=== PATIENT | female | born 1960 | race Caucasian/White ===

== ENCOUNTER 2018-05-08 14:46 | Observation (INO) ==
[2018-05-08] MEDS ORDERED: Aspirin 81 MG TAB.CHEW PO ONE (15:16)
--- NOTE | 2018-05-08 15:18 | Emergency Department Note ---
Disposition Clinical Impression: Exertional dyspnea Hypertension Qualifiers: Hypertension type: unspecified Qualified Code(s): I10 - Essential (primary) hypertension Disposition: Admitted As Inpatient Condition: Good Referrals: Edel Matos MD [Primary Care Provider] - Forms: ED Satisfaction Letter Time of Disposition: 18:24 General Adult HPI - General Chief complaint: ED Shortness of Breath/Dyspnea Stated complaint: SABRINA Elevated BP Time Seen by Provider: 05/08/18 15:04 Source: patient Limitations: no limitations Nursing Notes Reviewed: Yes Vital Signs Reviewed: Yes - History of Present Illness HPI Narrative: Female patient presenting to emergency department complaining of a 3 month history of dyspnea on exertion. Also generalized fatigue. 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 She takes omeprazole and has had several polyps removed from her esophagus. No chemo or radiation. She has no cardiac history is not a smoker and is not a diabetic. She reports 2 episodes of palpitations within the past month. She is also reporting a history of high blood pressure with no history of hypertension. She states today she was at work and felt very tired. They took her blood pressure and she was in the 200s over 1 teens. She does not have a history of hypertension. She reports a pressure sensation in her chest occasionally as well. Not at this time. Pain Scale: 0 - Related Data Home Medications Medication Instructions Recorded Confirmed Calcium Carbonate [Calcium] 500 mg PO DAILY 04/21/15 04/21/15 Dicyclomine [Bentyl] 20 mg PO QID 04/21/15 04/21/15 Glucosamine Sulfate Dipot Chlr 1,000 mg PO DAILY 04/21/15 04/21/15 [Glucosamine] Hyoscyamine SL [Levsin Sl] 0.125 mg SL TID 04/21/15 04/21/15 Lidocaine Patch [Lidoderm 5% patch] 1 each TP DAILY PRN 04/21/15 04/21/15 Meloxicam [Mobic] 15 mg PO DAILY 04/21/15 04/21/15 [place]-3/Dha/Epa/Fish Oil [Fish Oil 1,000 mg PO DAILY 04/21/15 04/21/15 1,000 mg Softgel] Omeprazole [PriLOSEC] 40 mg PO DAILY 04/21/15 04/21/15 Vitamin E 100 unit PO DAILY 04/21/15 04/21/15 raNITIdine HCl [Zantac] 150 mg PO DAILY PRN 04/21/15 04/21/15 Previous Rx's Medication Instructions Recorded Aspirin Enteric Coated [Aspirin EC] 325 mg PO DAILY #21 tablet. 04/20/15 OxyCODONE Immed Rel [Roxicodone 5 5 - 10 mg PO Q6HR PRN #40 tablet 04/20/15 MG] HYDROcodone/Acet 5/325 mg [[place]ame 1 tab PO Q6H PRN #4 tab 11/28/16 5-325 mg] Cyclobenzaprine [Flexeril] 10 mg PO TID PRN 10 Days #30 tablet 04/25/17 HYDROcodone/Acet 5/325 mg [Rhame 1 tab PO Q6H PRN 3 Days #12 tab 04/25/17 5-325 mg] Allergies Allergy/AdvReac Type Severity Reaction Status Date / Time codeine AdvReac Gastrointestinal Verified 05/08/18 14:54 [From Tylenol-Codeine] Upset gabapentin [From Neurontin] AdvReac Gastrointestinal Verified 05/08/18 14:54 Upset naproxen AdvReac Gastrointestinal Verified 05/08/18 14:54 Upset prednisone AdvReac Drowsy Verified 05/08/18 14:54 tramadol AdvReac Gastrointestinal Verified 05/08/18 14:54 Upset All systems ED: reviewed and negative except as stated. Review of Systems: As Per HPI Constitutional: Denies: fever ENT ED: Denies: congestion Cardiovascular: Reports: chest pain, palpitations. Denies: syncope Respiratory: Reports: dyspnea. Denies: cough, sputum production Gastrointestinal: Denies: abdominal pain, nausea, vomiting, diarrhea, hematemesis, melena, hematochezia Endocrine: Reports: fatigue Past Medical History - Past Medical History Attestation: Yes The following information was validated with the patient. Source: patient Medical history: Reports: arthritis, other Surgical history: Reports: cholecystectomy, other Psychiatric history: Reports: no psych history [employer] history: Reports: bilateral tubal ligation - Social History Smoking Status: Never smoker Smokeless Tobacco Status: No Alcohol use: Reports: none Drug use: Reports: none Physical Exam - General Limitations: no limitations General appearance: alert, in no apparent distress - Head Head exam: atraumatic, normocephalic, normal inspection - Eye Eye exam: Present: normal appearance, PERRL, EOMI - ENT ENT exam: normal exam, normal oropharynx, mucous membranes moist - Neck Neck exam: Present: normal inspection, full ROM, trachea midline - Chest Chest inspection: Present: normal inspection, symmetric chest wall rise - Respiratory Respiratory exam: Present: normal lung sounds bilaterally. Absent: respiratory distress, accessory muscle use - Cardiovascular Cardiovascular exam: Present: regular rate, normal rhythm, normal heart sounds - Abdominal Exam Abdominal exam: Present: soft, Non-Tender. Absent: tenderness, distention, guarding, rebound, rigidity, organomegaly - Extremities Exam Extremities exam: Present: normal inspection, full ROM, normal capillary refill. Absent: tenderness, pedal edema - Back Exam Back exam: Present: normal inspection, full ROM. Absent: tenderness - Neurological Exam Neurological exam: Present: alert, oriented X3 - Psychiatric Psychiatric exam: Present: normal affect, normal mood - Skin Skin exam: Present: warm, dry, intact, normal color. Absent: rash, cyanosis Course Course Narrative: Female patient with no cardiac medical history presenting with generalized fatigue over the past 3 months. Also occasional palpitations. Did have some hypertension today which she does not have a history of. She is not a smoker she is not a diabetic. She reports that she has been getting so tired that she has had a sitdown and put her head down. 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 Patient's dimer was elevated she got a CTA of her chest. This showed no signs of acute pulmonary embolism or pneumonia. Patient's EKG shows no signs of acute ischemia. Troponin is negative. Patient reports some occasional "soreness" of her chest but denies it at this time. She states she has had 2 episodes her she felt like her heart is beating "funny" over the past 3 months as well. The most recent being this morning. We will admit patient to the hospital for further cardiac Evaluation. She is agreeable this plan. - Consultations Consultation #1: Dr Jett accepted Pt in stable condition. Time: 17:55 Vital Signs Temperature 97.4 F L 05/08/18 14:54 Pulse Rate 85 05/08/18 14:54 Respiratory Rate 16 05/08/18 14:54 Blood Pressure 185/118 05/08/18 14:54 O2 Sat by Pulse Oximetry 97 05/08/18 14:54 Temperature 97.4 F L 05/08/18 14:54 Pulse Rate 66 05/08/18 17:36 Respiratory Rate 16 05/08/18 17:36 Blood Pressure 160/73 05/08/18 17:36 O2 Sat by Pulse Oximetry 95 05/08/18 17:36 Oxygen Delivery Oxygen Delivery Room Air Medical Decision Making - Medical Records Medical records reviewed: Yes I reviewed the patient's medical records. - Lab Data Lab results reviewed: Yes I reviewed the patient's lab results. Result diagrams: 05/08/18 15:38 05/08/18 15:38 Lab Results 05/08/18 05/08/18 05/08/18 Range/Units 15:38 15:38 15:38 WBC 6.0 (4.3-11.1) K/mcL RBC 4.72 (3.82-4.97) M/mcL Hgb 12.7 (11.5-15.4) g/dL Hct 40.4 (35.3-44.9) % MCV 85.6 (83.0-100.0) fL MCH 26.9 L (28.0-33.3) pg MCHC 31.4 L (31.6-35.5) g/dL RDW 13.7 (11.5-14.5) % Plt Count 213 (140-400) K/mcL MPV 9.6 (9.4-12.4) fL Immature Gran % 0.3 (0-4) % Seg Neutrophils % 74.0 % Lymphocytes % 18.3 % Monocytes % 5.9 % Eosinophils % 1.0 % Basophils % 0.5 % Neutrophils # 4.4 (1.6-8.9) K/mcL Lymphocytes # 1.1 (0.6-4.6) K/mcL Monocytes # 0.4 (0.0-1.3) K/mcL Eosinophils # 0.1 (0.0-0.6) K/mcL Basophils # 0.0 (0.0-0.2) K/mcL PT 11.2 (9.4-12.1) Seconds INR 1.0 APTT 29.4 (26.0-36.0) Seconds D-Dimer 568 H (0-500) ng/mLFEU Sodium (136-145) mEq/L Potassium (3.5-5.1) mEq/L Chloride (98-107) mEq/L Carbon Dioxide (23-29) mEq/L BUN (6-20) mg/dL Creatinine (0.60-1.20) mg/dL Est GFR ( Amer) (> 60) Est GFR (Non-Af Amer) (> 60) BUN/Creatinine Ratio (6-26) Glucose (70-105) mg/dL Calculated Osmolality (280-300) Calcium (8.6-10.3) mg/dL Troponin I (< 0.04) ng/mL B-Natriuretic Peptide 61 (Less than 100) pg/mL 05/08/18 Range/Units 15:38 WBC (4.3-11.1) K/mcL RBC (3.82-4.97) M/mcL Hgb (11.5-15.4) g/dL Hct (35.3-44.9) % MCV (83.0-100.0) fL MCH (28.0-33.3) pg MCHC (31.6-35.5) g/dL RDW (11.5-14.5) % Plt Count (140-400) K/mcL MPV (9.4-12.4) fL Immature Gran % (0-4) % Seg Neutrophils % % Lymphocytes % % Monocytes % % Eosinophils % % Basophils % % Neutrophils # (1.6-8.9) K/mcL Lymphocytes # (0.6-4.6) K/mcL Monocytes # (0.0-1.3) K/mcL Eosinophils # (0.0-0.6) K/mcL Basophils # (0.0-0.2) K/mcL PT (9.4-12.1) Seconds INR APTT (26.0-36.0) Seconds D-Dimer (0-500) ng/mLFEU Sodium 142 (136-145) mEq/L Potassium 3.7 (3.5-5.1) mEq/L Chloride 107 (98-107) mEq/L Carbon Dioxide 27 (23-29) mEq/L BUN 17 (6-20) mg/dL Creatinine 0.75 (0.60-1.20) mg/dL Est GFR ( Amer) > 60 (> 60) Est GFR (Non-Af Amer) > 60 (> 60) BUN/Creatinine Ratio 23 (6-26) Glucose 159 H (70-105) mg/dL Calculated Osmolality 299 (280-300) Calcium 9.0 (8.6-10.3) mg/dL Troponin I < 0.03 (< 0.04) ng/mL B-Natriuretic Peptide (Less than 100) pg/mL - Radiology Data Radiology results reviewed: Yes I reviewed the patient's radiology results. Chest X-Ray 05/08/18 15:16 IMPRESSION: No acute abnormality D/ / Chet Villatoro / Chet Villatoro Interpreting Provider: Chet Villatoro Chest CTA 05/08/18 16:17 IMPRESSION: No evidence of pulmonary embolism or acute pulmonary abnormality. D/ / Derik Mathew MD / Derik Mathew MD Interpreting Provider: Derik Mathew MD - EKG Data EKG #1 EKG attestation: Yes I reviewed and interpreted this EKG. EKG results narrative: Normal sinus rhythm at a rate of 84. KS interval is 151. QRS duration is 85. QT is 380. QTC is 450. No signs of acute ischemia. No signs of WPW or Brugada. No significant change from previous EKG dated 04/21/2015.
[2018-05-08 15:49] LABS: Basophils % 0.5 %; Eosinophils # 0.1 K/mcL (0.0-0.6); Hematocrit 40.4 % (35.3-44.9); Hemoglobin 12.7 g/dL (11.5-15.4); Immature Granulocytes % 0.3 % (0-4); Lymphocytes # 1.1 K/mcL (0.6-4.6); Lymphocytes % 18.3 %; Mean Corpuscular HGB Conc 31.4 g/dL (31.6-35.5); Mean Corpuscular Hemoglobin 26.9 pg (28.0-33.3); Mean Corpuscular Volume 85.6 fL (83.0-100.0); Mean Platelet Volume 9.6 fL (9.4-12.4); Monocytes # 0.4 K/mcL (0.0-1.3); Monocytes % 5.9 %; Neutrophils # 4.4 K/mcL (1.6-8.9); Platelet Count 213 K/mcL (140-400); Red Blood Count 4.72 M/mcL (3.82-4.97); Red Cell Distribution Width 13.7 % (11.5-14.5)
[2018-05-08 16:00] LABS: Prothrombin Time 11.2 Seconds (9.4-12.1)
[2018-05-08 16:02] LABS: Activated Partial Thrombo Time 29.4 Seconds (26.0-36.0)
[2018-05-08 16:12] LABS: BUN/Creatinine Ratio 23 (6-26); Blood Urea Nitrogen 17 mg/dL (6-20); Carbon Dioxide 27 mEq/L (23-29); Chloride 107 mEq/L (98-107); Glucose 159 mg/dL (70-105); Osmolality,Calculated 299 (280-300); Potassium 3.7 mEq/L (3.5-5.1); Sodium 142 mEq/L (136-145); Troponin I < 0.03 ng/mL (< 0.04); eGFR For Non-African Americans > 60 (> 60)
[2018-05-08] MEDS ORDERED: Isovue-370 500 ML BOTTLE IVP ONE (16:17)
--- NOTE | 2018-05-08 16:52 | Emergency Department Note ---
Disposition Clinical Impression: Exertional dyspnea Hypertension Qualifiers: Hypertension type: unspecified Qualified Code(s): I10 - Essential (primary) hypertension Disposition: Admitted As Inpatient Forms: ED Satisfaction Letter General Adult HPI - General Chief complaint: ED Shortness of Breath/Dyspnea Stated complaint: SABRINA Elevated BP Time Seen by Provider: 05/08/18 15:04 Source: patient Limitations: no limitations - History of Present Illness Pain Scale: 0 - Related Data Home Medications Medication Instructions Recorded Confirmed Calcium Carbonate [Calcium] 500 mg PO DAILY 04/21/15 04/21/15 Dicyclomine [Bentyl] 20 mg PO QID 04/21/15 04/21/15 Glucosamine Sulfate Dipot Chlr 1,000 mg PO DAILY 04/21/15 04/21/15 [Glucosamine] Hyoscyamine SL [Levsin Sl] 0.125 mg SL TID 04/21/15 04/21/15 Lidocaine Patch [Lidoderm 5% patch] 1 each TP DAILY PRN 04/21/15 04/21/15 Meloxicam [Mobic] 15 mg PO DAILY 04/21/15 04/21/15 [place]-3/Dha/Epa/Fish Oil [Fish Oil 1,000 mg PO DAILY 04/21/15 04/21/15 1,000 mg Softgel] Omeprazole [PriLOSEC] 40 mg PO DAILY 04/21/15 04/21/15 Vitamin E 100 unit PO DAILY 04/21/15 04/21/15 raNITIdine HCl [Zantac] 150 mg PO DAILY PRN 04/21/15 04/21/15 Previous Rx's Medication Instructions Recorded Aspirin Enteric Coated [Aspirin EC] 325 mg PO DAILY #21 tablet. 04/20/15 OxyCODONE Immed Rel [Roxicodone 5 5 - 10 mg PO Q6HR PRN #40 tablet 04/20/15 MG] HYDROcodone/Acet 5/325 mg [[place] 1 tab PO Q6H PRN #4 tab 11/28/16 5-325 mg] Cyclobenzaprine [Flexeril] 10 mg PO TID PRN 10 Days #30 tablet 04/25/17 HYDROcodone/Acet 5/325 mg [Anna 1 tab PO Q6H PRN 3 Days #12 tab 04/25/17 5-325 mg] Allergies Allergy/AdvReac Type Severity Reaction Status Date / Time codeine AdvReac Gastrointestinal Verified 05/08/18 14:54 [From Tylenol-Codeine] Upset gabapentin [From Neurontin] AdvReac Gastrointestinal Verified 05/08/18 14:54 Upset naproxen AdvReac Gastrointestinal Verified 05/08/18 14:54 Upset prednisone AdvReac Drowsy Verified 05/08/18 14:54 tramadol AdvReac Gastrointestinal Verified 05/08/18 14:54 Upset Past Medical History - Past Medical History Medical history: Reports: arthritis, other Surgical history: Reports: cholecystectomy, other Psychiatric history: Reports: no psych history [employer] 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 - Social History Smoking Status: Never smoker Smokeless Tobacco Status: No Alcohol use: Reports: none Drug use: Reports: none Physical Exam - General Limitations: no limitations General appearance: alert, in no apparent distress Course Vital Signs Temperature 97.4 F L 05/08/18 14:54 Pulse Rate 85 05/08/18 14:54 Respiratory Rate 16 05/08/18 14:54 Blood Pressure 185/118 05/08/18 14:54 O2 Sat by Pulse Oximetry 97 05/08/18 14:54 Temperature 97.4 F L 05/08/18 14:54 Pulse Rate 85 05/08/18 15:25 Respiratory Rate 16 05/08/18 15:25 Blood Pressure 159/98 05/08/18 15:25 O2 Sat by Pulse Oximetry 99 05/08/18 15:27 Oxygen Delivery Oxygen Delivery Room Air Medical Decision Making - Lab Data Result diagrams: 05/08/18 15:38 05/08/18 15:38 Lab Results 05/08/18 05/08/18 05/08/18 Range/Units 15:38 15:38 15:38 WBC 6.0 (4.3-11.1) K/mcL RBC 4.72 (3.82-4.97) M/mcL Hgb 12.7 (11.5-15.4) g/dL Hct 40.4 (35.3-44.9) % MCV 85.6 (83.0-100.0) fL MCH 26.9 L (28.0-33.3) pg MCHC 31.4 L (31.6-35.5) g/dL RDW 13.7 (11.5-14.5) % Plt Count 213 (140-400) K/mcL MPV 9.6 (9.4-12.4) fL Immature Gran % 0.3 (0-4) % Seg Neutrophils % 74.0 % Lymphocytes % 18.3 % Monocytes % 5.9 % Eosinophils % 1.0 % Basophils % 0.5 % Neutrophils # 4.4 (1.6-8.9) K/mcL Lymphocytes # 1.1 (0.6-4.6) K/mcL Monocytes # 0.4 (0.0-1.3) K/mcL Eosinophils # 0.1 (0.0-0.6) K/mcL Basophils # 0.0 (0.0-0.2) K/mcL PT 11.2 (9.4-12.1) Seconds INR 1.0 APTT 29.4 (26.0-36.0) Seconds D-Dimer 568 H (0-500) ng/mLFEU Sodium (136-145) mEq/L Potassium (3.5-5.1) mEq/L Chloride (98-107) mEq/L Carbon Dioxide (23-29) mEq/L BUN (6-20) mg/dL Creatinine (0.60-1.20) mg/dL Est GFR ( Amer) (> 60) Est GFR (Non-Af Amer) (> 60) BUN/Creatinine Ratio (6-26) Glucose (70-105) mg/dL Calculated Osmolality (280-300) Calcium (8.6-10.3) mg/dL Troponin I (< 0.04) ng/mL B-Natriuretic Peptide 61 (Less than 100) pg/mL 05/08/18 Range/Units 15:38 WBC (4.3-11.1) K/mcL RBC (3.82-4.97) M/mcL Hgb (11.5-15.4) g/dL Hct (35.3-44.9) % MCV (83.0-100.0) fL MCH (28.0-33.3) pg MCHC (31.6-35.5) g/dL RDW (11.5-14.5) % Plt Count (140-400) K/mcL MPV (9.4-12.4) fL Immature Gran % (0-4) % Seg Neutrophils % % Lymphocytes % % Monocytes % % Eosinophils % % Basophils % % Neutrophils # (1.6-8.9) K/mcL Lymphocytes # (0.6-4.6) K/mcL Monocytes # (0.0-1.3) K/mcL Eosinophils # (0.0-0.6) K/mcL Basophils # (0.0-0.2) K/mcL PT (9.4-12.1) Seconds INR APTT (26.0-36.0) Seconds D-Dimer (0-500) ng/mLFEU Sodium 142 (136-145) mEq/L Potassium 3.7 (3.5-5.1) mEq/L Chloride 107 (98-107) mEq/L Carbon Dioxide 27 (23-29) mEq/L BUN 17 (6-20) mg/dL Creatinine 0.75 (0.60-1.20) mg/dL Est GFR ( Amer) > 60 (> 60) Est GFR (Non-Af Amer) > 60 (> 60) BUN/Creatinine Ratio 23 (6-26) Glucose 159 H (70-105) mg/dL Calculated Osmolality 299 (280-300) Calcium 9.0 (8.6-10.3) mg/dL Troponin I < 0.03 (< 0.04) ng/mL B-Natriuretic Peptide (Less than 100) pg/mL Attestation Statement - Attestation Attestation: I examined this patient and my medical decision-making was reviewed with the Resident Physician. I agree with the documented findings, disposition and ameena tment plan as described except to the extent set forth below. 57 year old female state that she has been experincing increased exetioanl dyspnea over the past few weeks and states that whiel she was taking her shower she became incresingly more sort of breath. Argelia troponin is neg, non ischemic EKG, and D-dimer elevated CTA pending. Argelia was hypertensive upon arrival and now is 150/80s. We will obtain the CTA and then admit to exertional dyspnea and likely unstable angina.
[2018-05-08] MEDS ORDERED: Naloxone 0.4 MG/ML INJ IVP PRN (18:09)
[2018-05-08] MEDS ORDERED: Ondansetron 4 MG/2 ML VIAL IVP PRN (18:09)
--- NOTE | 2018-05-08 18:19 | Internal Med History&Physical ---
Date of Encounter: 05/08/18 Time of Encounter: 17:58 Internal Medicine - H&P: HPI Chief complaint: chest pain/fatigue Admitted From: Home Plans for Post Hospital Care: Home History of present illness: Ms. Le is a 57 year old female with PMH of grider's esophagus, arthritis, morbid obesity who presents to the ER for evaluation of persistent chest discomfort, fatigue, and dyspnea. Pt states for the last three months she has been feeling fatigued, chest heaviness, and exertional dyspnea. She states this week, her symptoms have progressively worsened. She states anytime she bends over to tie her shoe laces, she is fatigued and extremely short of breath. Reports of extensive weight gain in the last three months. Currently she is resting in bed and denies any chest pain or shortness of breath at rest. States she constantly feels fatigued as she has ran a marathon. Denies any cough, cold, congestion, headache, fever, or chills. No traveling history or exposure to ill contacts was reported. Ten point ROS is negative except as listed above Social hx: Never smoker, denies alcohol use Past Med Surg Social Fam HX - Past Medical History Medical history: arthritis, other Additional medical history: farzad's esophagus Psychiatric history: no psych history - Past Surgical History Surgical History: cholecystectomy, other Additional surgical history: knee replacement, tubal, rotator cuff repair. - Social History Smoking Status: Never smoker Smokeless Tobacco Status: No Alcohol use: none Drug use: none Internal Medicine - H&P: Meds Aspirin Enteric Coated [Aspirin EC] 325 mg PO DAILY #21 tablet. 04/20/15 [Rx] OxyCODONE Immed Rel [Roxicodone 5 MG] 5 - 10 mg PO Q6HR PRN #40 tablet 04/20/15 [Rx] Calcium Carbonate [Calcium] 500 mg PO DAILY 04/21/15 [History] Dicyclomine [Bentyl] 20 mg PO QID 04/21/15 [History] Glucosamine Sulfate Dipot Chlr [Glucosamine] 1,000 mg PO DAILY 04/21/15 [History] Hyoscyamine SL [Levsin Sl] 0.125 mg SL TID 04/21/15 [History] Lidocaine Patch [Lidoderm 5% patch] 1 each TP DAILY PRN 04/21/15 [History] Meloxicam [Mobic] 15 mg PO DAILY 04/21/15 [History] [place]-3/Dha/Epa/Fish Oil [Fish Oil 1,000 mg Softgel] 1,000 mg PO DAILY 04/21/15 [History] Omeprazole [PriLOSEC] 40 mg PO DAILY 04/21/15 [History] Vitamin E 100 unit PO DAILY 04/21/15 [History] raNITIdine HCl [Zantac] 150 mg PO DAILY PRN 04/21/15 [History] HYDROcodone/Acet 5/325 mg [[place] 5-325 mg] 1 tab PO Q6H PRN #4 tab 11/28/16 [Rx] Cyclobenzaprine [Flexeril] 10 mg PO TID PRN 10 Days #30 tablet 04/25/17 [Rx] HYDROcodone/Acet 5/325 mg [[place] 5-325 mg] 1 tab PO Q6H PRN 3 Days #12 tab 04/25/17 [Rx] Allergy/AdvReac Type Severity Reaction Status Date / Time codeine AdvReac Gastrointestinal Verified 05/08/18 14:54 [From Tylenol-Codeine] Upset gabapentin [From Neurontin] AdvReac Gastrointestinal Verified 05/08/18 14:54 Upset naproxen AdvReac Gastrointestinal Verified 05/08/18 14:54 Upset prednisone AdvReac Drowsy Verified 05/08/18 14:54 tramadol AdvReac Gastrointestinal Verified 05/08/18 14:54 Upset All Systems PM: A 10-system review of systems was performed and is negative for pertinent findings except as documented above in the HPI. Review of systems: Ten point ROS is negative except as listed in HPI - Constitutional Vitals: Temp Pulse Resp BP Pulse Ox 97.4 F L 66 16 160/73 95 05/08/18 14:54 05/08/18 17:36 05/08/18 17:36 05/08/18 17:36 05/08/18 17:36 Exam: General: No acute distress, AAO x 3, pleasant morbidly obese female HEENT: EOMI, NC/AT, no scleral icterus, PERRLA Respiratory: Clear to auscultate bilaterally, no wheezing, no rales Cardiovascular: Regular, Rate, Rhythm, No murmurs, no JVD, no LE edema GI: Soft, Non tender, non distended, normal bowel sounds Ext: No edema, no tenderness, positive pulses Neuro: AAO x 3, no focal deficits Internal Med - H&P Results - Labs CBC & Chem 7: 05/08/18 15:38 05/08/18 15:38 Labs: Short CBC 05/08/18 Range/Units 15:38 WBC 6.0 (4.3-11.1) K/mcL Hgb 12.7 (11.5-15.4) g/dL Hct 40.4 (35.3-44.9) % Plt Count 213 (140-400) K/mcL Neutrophils # 4.4 (1.6-8.9) K/mcL BMP 05/08/18 15:38 Sodium 142 Potassium 3.7 Chloride 107 Carbon Dioxide 27 BUN 17 Creatinine 0.75 Glucose 159 H Calcium 9.0 Cardiac Enzymes 05/08/18 Range/Units 15:38 Troponin I < 0.03 (< 0.04) ng/mL - Impressions ITS Impressions Chest X-Ray 05/08/18 15:16 IMPRESSION: No acute abnormality D/ / Chet Villatoro / Chet Villatoro Interpreting Provider: Chet Villatoro Chest CTA 05/08/18 16:17 IMPRESSION: No evidence of pulmonary embolism or acute pulmonary abnormality. D/ / Derik Mathew MD / Derik Mathew MD Interpreting Provider: Derik Mathew MD - Summary of Assessment and Plan Summary of Assessment and Plan: Patient is a pleasant 57 y/o female with PMH of arthritis, grider's esophagus, and morbidly obesity who presented to the ER for evaluation of persistent chest discomfort, dyspnea, and fatigue x 3 months. 1. Chest pain/Exertional dyspnea Clinical presentation concerning for CHF/unstable angina will obtain 2D echo monitor serial TNI aspirin, lipitor f/u lipid panel tele monitoring based on above test results, will consider cardiology evaluation Elevated D-dimer, CTA chest negative for acute PE 2. HTN Noted to have elevated BP readings as per med records no documented history of hypertension will initiate Lisinopril 5mg PO qdaily closely monitor BP 3. Grider's esophagus continue PPI support 4. DVT ppx Heparin SQ Will admit under observation to rule out ACS contributing to patient's clinical presentation. LOS <2 midnights Code status: Full Code Care plan discussed with patient/Family Will restart home medications after verification - Time Spent With Patient Total time spent is greater than 50% in coordination of care (as documented) at patient's floor/unit and/or counseling patient:
[2018-05-09 04:49] LABS: Basophils % 0.6 %; Eosinophils # 0.1 K/mcL (0.0-0.6); Hematocrit 37.5 % (35.3-44.9); Hemoglobin 11.9 g/dL (11.5-15.4); Immature Granulocytes % 0.2 % (0-4); Lymphocytes # 1.3 K/mcL (0.6-4.6); Lymphocytes % 26.8 %; Mean Corpuscular HGB Conc 31.7 g/dL (31.6-35.5); Mean Corpuscular Hemoglobin 26.5 pg (28.0-33.3); Mean Corpuscular Volume 83.5 fL (83.0-100.0); Monocytes # 0.5 K/mcL (0.0-1.3); Monocytes % 9.9 %; Platelet Count 203 K/mcL (140-400); Red Blood Count 4.49 M/mcL (3.82-4.97); Red Cell Distribution Width 13.9 % (11.5-14.5); Segmented Neutrophils % 60.5 %
[2018-05-09 05:00] LABS: BUN/Creatinine Ratio 25 (6-26); Blood Urea Nitrogen 17 mg/dL (6-20); Calcium 8.7 mg/dL (8.6-10.3); Carbon Dioxide 28 mEq/L (23-29); Chloride 107 mEq/L (98-107); Cholesterol 206 mg/dL (< 200); Glucose 110 mg/dL (70-105); HDL Cholesterol 52 mg/dL (40-59); LDL Cholesterol,Calculated 134 mg/dL (0-99); Osmolality,Calculated 294 (280-300); Phosphorous 3.9 mg/dL (2.7-4.5); Potassium 3.7 mEq/L (3.5-5.1); Sodium 141 mEq/L (136-145); Triglycerides 99 mg/dL (< 150); eGFR For Non-African Americans > 60 (> 60)
[2018-05-09] MEDS ORDERED: *HR* Heparin 5,000 UNIT/ML VIAL SQ SCH (06:00)
[2018-05-09] MEDS ORDERED: Perflutren Lipid Microsphere 1.3 ML in 0.9 % Sodium Chloride 8.7 ML IVP ONE (08:11)
[2018-05-09] MEDS ORDERED: Aspirin Enteric Coated 81 MG Tablet PO SCH (09:00)
--- NOTE | 2018-05-09 10:43 | Discharge Summary ---
- NOTES TO OUTPATIENT PROVIDER Notes to Outpatient Provider: f/u with PCP in one week. May need out pt stress test through your PCP. Please f/u with Dr. Arnold as scheduled for your readjustment of CPAP settings Orders not resulted at time of discharge: Pending orders 05/09/18 04:00 Hgb A1C Routine 05/09/18 06:00 ECG 12 lead ECG [ECG] AM 0600 Date of Encounter: 05/09/18 Time of Encounter: 10:41 - Discharge Diagnosis (1) Exertional dyspnea Priority: Primary Status: Acute (2) Metabolic syndrome Priority: Secondary Status: Acute (3) Morbid obesity with BMI of 40.0-44.9, adult Priority: Secondary Status: Acute (4) Diastolic CHF, acute Priority: Secondary Status: Acute (5) Hypertension Priority: Secondary Status: Acute Qualifiers: Hypertension type: essential hypertension Qualified Code(s): I10 - Essential (primary) hypertension (6) Hyperlipidemia Priority: Secondary Status: Acute Qualifiers: Hyperlipidemia type: unspecified Qualified Code(s): E78.5 - Hyperlipidemia, unspecified Hospital course: Ms. Le is a 57 year old female with PMH of grider's esophagus, arthritis, obstructive sleep apnea uses CPAP, and morbid obesity who presented to the ER for evaluation of dyspnea on exertion, fatigue, and SOB. Pt states for the last three months she has been feeling fatigued, chest heaviness, and exertional dyspnea. She states this week, her symptoms have progressively worsened. She also reported of extensive weight gain in the last three months. She was admitted in the hospital and placed on cardiac technician. Her initial EKG showed normal sinus rhythm with no acute ST, T changes, however she does have left ventricular hypertrophy changes. Her serial troponin came back is negative. Her BNP was in 60's. She did use our CPAP last night with settings of 9.Patient stated she is feeling better today denied anymore shortness of breath and chest pain. Her echocardiogram showed preserved LVEF with mild left ventricular diastolic dysfunction. I did recommend the patient to take Lasix 20 mg PO daily as needed. Also patient seems to be having problems with her home CPAP, so I did request her to follow up with the Dr. Arnold for another sleep study. Her HbA1C 6.0, with morbid obesity she does have metabolic syndrome, counseled the pt about weight loss, diet modifications. Also recommend the pt to talk to PCP for possible out pt stress test, if she keep having same symptoms. - Time Spent with Patient Total time spent providing and/or coordinating discharge services: - Discharge Medications Prescriptions: New Albuterol Sulfate [Albuterol Inhaler] 2 puff IH Q6HR PRN #1 hfa.aer.ad PRN Reason: Shortness Of Breath Aspirin Enteric Coated [Aspirin EC] 81 mg PO DAILY #30 tablet. Atorvastatin [Lipitor] 40 mg PO HS #30 tablet Furosemide [Lasix] 20 mg PO DAILY PRN #15 tablet PRN Reason: Edema Lisinopril [Zestril] 5 mg PO DAILY #30 tablet Continue [place]-3/Dha/Epa/Fish Oil [Fish Oil 1,000 mg Softgel] 1,000 mg PO DAILY Vitamin E Acid Succinate [Vitamin E] 400 units PO DAILY Omeprazole [PriLOSEC] 40 mg PO DAILY Glucosamine HCl/Chondr Sam A Na [Cvs Glucosamine-Chondr Tablet] 1 tab PO DAILY Calcium Carb/Magnesium Oxid/D3 [Calcium Magnesium + D Tablet] 1 tab PO DAILY Changed Meloxicam [Mobic] 15 mg PO DAILY PRN #0 PRN Reason: Pain Home Medications: [place]-3/Dha/Epa/Fish Oil [Fish Oil 1,000 mg Softgel] 1,000 mg PO DAILY 04/21/15 [History] Calcium Carb/Magnesium Oxid/D3 [Calcium Magnesium + D Tablet] 1 tab PO DAILY 05/08/18 [History] Glucosamine HCl/Chondr Sam A Na [Cvs Glucosamine-Chondr Tablet] 1 tab PO DAILY 05/08/18 [History] Omeprazole [PriLOSEC] 40 mg PO DAILY 05/08/18 [History] Vitamin E Acid Succinate [Vitamin E] 400 units PO DAILY 05/08/18 [History] Albuterol Sulfate [Albuterol Inhaler] 2 puff IH Q6HR PRN #1 hfa.aer.ad 05/09/18 [Rx] Aspirin Enteric Coated [Aspirin EC] 81 mg PO DAILY #30 tablet. 05/09/18 [Rx] Atorvastatin [Lipitor] 40 mg PO HS #30 tablet 05/09/18 [Rx] Furosemide [Lasix] 20 mg PO DAILY PRN #15 tablet 05/09/18 [Rx] Lisinopril [Zestril] 5 mg PO DAILY #30 tablet 05/09/18 [Rx] Meloxicam [Mobic] 15 mg PO DAILY PRN #0 05/09/18 [Rx] Allergies/Adverse Reactions: Allergy/AdvReac Type Severity Reaction Status Date / Time codeine AdvReac Gastrointestinal Verified 05/08/18 21:03 [From Tylenol-Codeine] Upset gabapentin [From Neurontin] AdvReac Gastrointestinal Verified 05/08/18 21:03 Upset naproxen AdvReac Gastrointestinal Verified 05/08/18 21:03 Upset prednisone AdvReac Drowsy Verified 05/08/18 21:03 tramadol AdvReac Gastrointestinal Verified 05/08/18 21:03 Upset Date of admission: 05/08/18 18:19 Primary care physician: Edel Matos - Constitutional Vitals: Temp Pulse Resp BP Pulse Ox 97.7 F 62 16 127/77 97 05/09/18 06:37 05/09/18 06:37 05/09/18 06:37 05/09/18 06:37 05/09/18 06:37 General appearance: Present: cooperative, A&O X 3, no acute distress Exam: Gen: Alert, awake, Oriented to time,place and person Chest: Diminished breath sounds B/L, mild wheezing, No crackles, No rales Heart: S1S2+ RRR No murmurs Abd: Soft, NT, BS +, No organomegaly Ext: No edema, pulses are palpable, No calf tenderness Neuro : Benign findings Skin: No rash. - Patient Status Disposition: Home, Self-Care Condition: Good Overall status at discharge: patient is back to baseline - Discharge Instructions Follow Up With: Edel Matos MD [Primary Care Provider] - 05/17/18 1:45 pm (Appointment needed to schedule an outpatient stress test. PLEASE CALL OFFICE AT [phone] TO SEE IF ANY OFFICE HAS ANY CANCELATIONS FOR AN EARLIER APPOINTMENT.) Arthur Arnold MD [Partnered Physician] - (Your appointment has been requested, our offices will call with an appointment time and date.) - Diet and Activity Activity: increase activity as tolerated Diet: low salt diet
[2018-05-09 14:58] VITALS: BP 110/63
--- NOTE | 2018-05-09 17:30 | Electrocardiograph Report ---
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
== END 2018-05-09 15:47 | disposition home or self-care (01) ==
LOC: EMEROOARM 14:46 → 3BNU 14:46 → SUATTDRO 18:19 → 3BNU 20:10
PROVIDERS: ADMIT Internal Medicine; ATTEND Family Medicine

== ENCOUNTER 2018-11-04 15:44 | Observation (INO) ==
[2018-11-04 16:17] LABS: Bilirubin,Urine Negative (Negative); Blood,Urine Negative (Negative); Clarity,Urine Clear (Clear); Color,Urine Yellow (Yellow); Glucose,Urine (UA) Normal (Normal); Ketones,Urine Negative (Negative); Leukocyte Esterase,Urine Negative (Negative); Nitrite,Urine Negative (Negative); PH,Urine 6.5 pH Units (5.0-8.0); Protein,Urine Negative (Neg-Trace); Urobilinogen,Urine Normal (Normal)
--- NOTE | 2018-11-04 16:31 | Emergency Department Note ---
Disposition Clinical Impression: Fever Qualifiers: Fever type: unspecified Qualified Code(s): R50.9 - Fever, unspecified Disposition: Home, Self-Care Condition: Fair Referrals: Edel Matos MD [Primary Care Provider] - Forms: ED Satisfaction Letter Time of Disposition: 19:15 General Adult HPI - General Chief complaint: ED Fever Stated complaint: UTI fever Time Seen by Provider: 11/04/18 16:06 Source: patient Mode of arrival: ambulatory Limitations: no limitations Nursing Notes Reviewed: Yes Vital Signs Reviewed: Yes - History of Present Illness HPI Narrative: Patient is a 58F with PMHx HTN, DM, knee replacement, presenting with fever, nausea, started on keflex 1 week ago Tuesday, seen again on Tuesday and prescribed Ciprofloxacin. Over the past 3 days patient has slight improvement in symptoms. Intermittent fever for 6 days. Dizziness, nausea, KAYLIE, polyuria, no dysuria. No abdominal pain. No cough or congestion. She c/o bruising left hip and swelling/pain in the left calf. Normal stools. Pain Scale: 0 - Related Data Home Medications Medication Instructions Recorded Confirmed [place]-3/Dha/Epa/Fish Oil [Fish Oil 1,000 mg PO DAILY 04/21/15 05/08/18 1,000 mg Softgel] Calcium Carb/Magnesium Oxid/D3 1 tab PO DAILY 05/08/18 05/08/18 [Calcium Magnesium + D Tablet] Glucosamine HCl/Chondr Sam A Na 1 tab PO DAILY 05/08/18 05/08/18 [Cvs Glucosamine-Chondr Tablet] Omeprazole [PriLOSEC] 40 mg PO DAILY 05/08/18 05/08/18 Vitamin E Acid Succinate [Vitamin 400 units PO DAILY 05/08/18 05/08/18 E] Previous Rx's Medication Instructions Recorded Albuterol Sulfate [Albuterol 2 puff IH Q6HR PRN #1 hfa.aer.ad 05/09/18 Inhaler] Aspirin Enteric Coated [Aspirin EC] 81 mg PO DAILY #30 tablet. 05/09/18 Atorvastatin [Lipitor] 40 mg PO HS #30 tablet 05/09/18 Furosemide [Lasix] 20 mg PO DAILY PRN #15 tablet 05/09/18 Lisinopril [Zestril] 20 mg PO DAILY #30 tablet 05/09/18 Meloxicam [Mobic] 15 mg PO DAILY PRN #0 05/09/18 Ondansetron ODT [Zofran ODT] 4 mg SL Q6HR #20 tab.rapdis 10/29/18 cephALEXin [Keflex] 500 mg PO BID #21 capsule 10/29/18 Allergies Allergy/AdvReac Type Severity Reaction Status Date / Time codeine AdvReac Gastrointestinal Verified 05/08/18 21:03 [From Tylenol-Codeine] Upset gabapentin [From Neurontin] AdvReac Gastrointestinal Verified 05/08/18 21:03 Upset naproxen AdvReac Gastrointestinal Verified 05/08/18 21:03 Upset prednisone AdvReac Drowsy Verified 05/08/18 21:03 tramadol AdvReac Gastrointestinal Verified 05/08/18 21:03 Upset All systems ED: reviewed and negative except as stated. Review of Systems: As Per HPI Constitutional: Reports: fever, chills Cardiovascular: Denies: chest pain, palpitations, dyspnea on exertion Respiratory: Denies: cough, dyspnea, wheezes Gastrointestinal: Reports: nausea. Denies: abdominal pain, vomiting, diarrhea Genitourinary: Denies: urgency, dysuria, frequency, hematuria Musculoskeletal: Denies: back pain, neck pain Integumentary: Denies: rash Neurological: Denies: headache, weakness, numbness, paresthesias Past Medical History - Past Medical History Attestation: Yes The following information was validated with the patient. 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 - Social History Smoking Status: Never smoker Smokeless Tobacco Status: No Alcohol use: Reports: none Drug use: Reports: none Physical Exam CONSTITUTIONAL: Well-appearing; well-nourished; A&O X 3, in no apparent distress HEAD: Normocephalic; atraumatic EYES: PERRL, no scleral icterus NOSE: The nose is normal in appearance without rhinorrhea NECK: No JVD or distended neck veins RESP: Normal chest excursion with respiration; breath sounds clear and equal bilaterally; no wheezes, rhonchi, or rales CARD: Regular rhythm, without murmurs, rub or gallop ABD: Non-distended; non-tender, soft, without rigidity, rebound or guarding,no pulsatile mass CHEST: No pain with palpation SKIN: Normal for age and race; warm and dry without diaphoresis ; mild ecchymosis along distribution of superficial veins to the lateral left thigh there is slightly warm to touch. EXTREMITIES: Pulses are 2 plus and equal times 4 extremities, no peripheral edema or calf muscle pain - General Limitations: no limitations General appearance: alert Course Course Narrative: Patient is presenting for prolonged fever in which she has received treatment for urinary tract infection which she was initially having urinary symptoms but those symptoms have since resolved. Currently on ciprofloxacin presenting to the ED for continuation of her fever that has been going on for almost the past 10 days. Patient undergo evaluation with basic labs, blood cultures undergo DVT ultrasound of the left lower extremity to evaluate for blood clot giving to superficial thrombophlebitis. Vital Signs Temperature 102.3 F H 11/04/18 15:59 Pulse Rate 94 11/04/18 15:59 Respiratory Rate 18 11/04/18 15:59 Blood Pressure 145/98 11/04/18 15:59 O2 Sat by Pulse Oximetry 95 11/04/18 15:59 Temperature 102.3 F H 11/04/18 16:25 Pulse Rate 94 11/04/18 16:25 Respiratory Rate 18 11/04/18 16:25 Blood Pressure 145/98 11/04/18 16:25 O2 Sat by Pulse Oximetry 98 11/04/18 16:25 Oxygen Delivery Oxygen Delivery Room Air Medical Decision Making - Medical Records Medical records reviewed: Yes I reviewed the patient's medical records. - Lab Data Lab results reviewed: Yes I reviewed the patient's lab results. Result diagrams: 11/04/18 16:29 11/04/18 16:29 Lab Results 11/04/18 11/04/18 11/04/18 Range/Units 16:00 16:18 16:29 WBC 6.2 D (4.3-11.1) K/mcL RBC 4.37 (3.82-4.97) M/mcL Hgb 12.1 (11.5-15.4) g/dL Hct 37.3 (35.3-44.9) % MCV 85.4 (83.0-100.0) fL MCH 27.7 L (28.0-33.3) pg MCHC 32.4 (31.6-35.5) g/dL RDW 13.0 (11.5-14.5) % Plt Count 160 (140-400) K/mcL MPV 10.0 (9.4-12.4) fL Immature Gran % 0.6 (0-4) % Seg Neutrophils % 60.8 % Lymphocytes % 29.7 % Monocytes % 6.6 % Eosinophils % 1.8 % Basophils % 0.5 % Neutrophils # 3.8 (1.6-8.9) K/mcL Lymphocytes # 1.8 (0.6-4.6) K/mcL Monocytes # 0.4 (0.0-1.3) K/mcL Eosinophils # 0.1 (0.0-0.6) K/mcL Basophils # 0.0 (0.0-0.2) K/mcL Sodium (136-145) mEq/L Potassium (3.5-5.1) mEq/L Chloride (98-107) mEq/L Carbon Dioxide (23-29) mEq/L BUN (6-20) mg/dL Creatinine (0.60-1.20) mg/dL Est GFR ( Amer) (> 60) Est GFR (Non-Af Amer) (> 60) BUN/Creatinine Ratio (6-26) Glucose (70-105) mg/dL Calculated Osmolality (280-300) Lactic Acid 1.1 (0.5-2.2) mmol/L Calcium (8.6-10.3) mg/dL Total Bilirubin (0.3-1.0) mg/dL Direct Bilirubin (0.0-0.2) mg/dL Indirect Bilirubin (0.0-1.2) mg/dL AST (13-39) Units/L ALT (7-52) Units/L Alkaline Phosphatase (34-104) Units/L Troponin I (< 0.04) ng/mL Serum Total Protein (6.4-8.9) g/dL Albumin (3.5-5.7) g/dL Globulin (2.4-3.5) g/dL Albumin/Globulin Ratio (1.1-2.2) Urine Color Yellow (Yellow) Urine Clarity Clear (Clear) Urine pH 6.5 (5.0-8.0) pH Units Ur Specific [place] 1.010 (1.010-1.025) Urine Protein Negative (Neg-Trace) mg/dL Urine Glucose (UA) Normal (Normal) mg/dL Urine Ketones Negative (Negative) mg/dL Urine Blood Negative (Negative) Urine Nitrite Negative (Negative) Urine Bilirubin Negative (Negative) Urine Urobilinogen Normal (Normal) mg/dL Ur Leukocyte Esterase Negative (Negative) Ur Culture Indicated? NO (NO) Lyme Total Antibody (Negative) EBV Capsid Ag IgM Ab (Negative) Infectious [place] Assay (Negative) 11/04/18 11/04/18 11/04/18 Range/Units 16:29 16:29 16:29 WBC (4.3-11.1) K/mcL RBC (3.82-4.97) M/mcL Hgb (11.5-15.4) g/dL Hct (35.3-44.9) % MCV (83.0-100.0) fL MCH (28.0-33.3) pg MCHC (31.6-35.5) g/dL RDW (11.5-14.5) % Plt Count (140-400) K/mcL MPV (9.4-12.4) fL Immature Gran % (0-4) % Seg Neutrophils % % Lymphocytes % % Monocytes % % Eosinophils % % Basophils % % Neutrophils # (1.6-8.9) K/mcL Lymphocytes # (0.6-4.6) K/mcL Monocytes # (0.0-1.3) K/mcL Eosinophils # (0.0-0.6) K/mcL Basophils # (0.0-0.2) K/mcL Sodium 132 L (136-145) mEq/L Potassium 3.8 (3.5-5.1) mEq/L Chloride 96 L (98-107) mEq/L Carbon Dioxide 25 (23-29) mEq/L BUN 13 (6-20) mg/dL Creatinine 0.76 (0.60-1.20) mg/dL Est GFR ( Amer) > 60 (> 60) Est GFR (Non-Af Amer) > 60 (> 60) BUN/Creatinine Ratio 17 (6-26) Glucose 135 H (70-105) mg/dL Calculated Osmolality 276 L (280-300) Lactic Acid (0.5-2.2) mmol/L Calcium 8.4 L (8.6-10.3) mg/dL Total Bilirubin 0.5 (0.3-1.0) mg/dL Direct Bilirubin 0.0 (0.0-0.2) mg/dL Indirect Bilirubin 0.5 (0.0-1.2) mg/dL AST 25 (13-39) Units/L ALT 44 (7-52) Units/L Alkaline Phosphatase 55 (34-104) Units/L Troponin I < 0.03 (< 0.04) ng/mL Serum Total Protein 6.8 (6.4-8.9) g/dL Albumin 3.6 (3.5-5.7) g/dL Globulin 3.2 (2.4-3.5) g/dL Albumin/Globulin Ratio 1.1 (1.1-2.2) Urine Color (Yellow) Urine Clarity (Clear) Urine pH (5.0-8.0) pH Units Ur Specific [place] (1.010-1.025) Urine Protein (Neg-Trace) mg/dL Urine Glucose (UA) (Normal) mg/dL Urine Ketones (Negative) mg/dL Urine Blood (Negative) Urine Nitrite (Negative) Urine Bilirubin (Negative) Urine Urobilinogen (Normal) mg/dL Ur Leukocyte Esterase (Negative) Ur Culture Indicated? (NO) Lyme Total Antibody Negative (Negative) EBV Capsid Ag IgM Ab Negative (Negative) Infectious Harrison Assay Negative (Negative) - EKG Data EKG #1 EKG attestation: Yes I reviewed and interpreted this EKG. EKG results narrative: No acute ischemic changes are noted on the EKG. No significant changes compared to the old EKG dated on done at 20:04 shows sinus rhythm rate 73 bpm. No axis. Intervals within normal limits.
[2018-11-04 16:50] LABS: Basophils % 0.5 %; Eosinophils # 0.1 K/mcL (0.0-0.6); Eosinophils % 1.8 %; Hematocrit 37.3 % (35.3-44.9); Hemoglobin 12.1 g/dL (11.5-15.4); Immature Granulocytes % 0.6 % (0-4); Lymphocytes # 1.8 K/mcL (0.6-4.6); Lymphocytes % 29.7 %; Mean Corpuscular HGB Conc 32.4 g/dL (31.6-35.5); Mean Corpuscular Hemoglobin 27.7 pg (28.0-33.3); Mean Corpuscular Volume 85.4 fL (83.0-100.0); Monocytes # 0.4 K/mcL (0.0-1.3); Monocytes % 6.6 %; Neutrophils # 3.8 K/mcL (1.6-8.9); Platelet Count 160 K/mcL (140-400); Red Blood Count 4.37 M/mcL (3.82-4.97); Segmented Neutrophils % 60.8 %
[2018-11-04] MEDS ORDERED: 0.9 % Sodium Chloride 1,000 ML IVC ONE (16:57)
[2018-11-04 16:59] LABS: White Blood Count 6.2 K/mcL (4.3-11.1)
[2018-11-04 17:14] LABS: Alanine Aminotransferase 44 Units/L (7-52); Albumin 3.6 g/dL (3.5-5.7); Albumin/Globulin Ratio 1.1 (1.1-2.2); Alkaline Phosphatase 55 Units/L (34-104); Aspartate Amino Transferase 25 Units/L (13-39); BUN/Creatinine Ratio 17 (6-26); Bilirubin,Indirect 0.5 mg/dL (0.0-1.2); Bilirubin,Total 0.5 mg/dL (0.3-1.0); Blood Urea Nitrogen 13 mg/dL (6-20); Calcium 8.4 mg/dL (8.6-10.3); Carbon Dioxide 25 mEq/L (23-29); Chloride 96 mEq/L (98-107); Globulin 3.2 g/dL (2.4-3.5); Glucose 135 mg/dL (70-105); Osmolality,Calculated 276 (280-300); Potassium 3.8 mEq/L (3.5-5.1); Sodium 132 mEq/L (136-145); Total Protein 6.8 g/dL (6.4-8.9); Troponin I < 0.03 ng/mL (< 0.04); eGFR For African Americans > 60 (> 60); eGFR For Non-African Americans > 60 (> 60)
--- NOTE | 2018-11-04 17:15 | Emergency Department Note ---
Disposition Clinical Impression: Fever Qualifiers: Fever type: unspecified Qualified Code(s): R50.9 - Fever, unspecified Disposition: Still a Patient Condition: Fair Referrals: Edel Matos MD [Primary Care Provider] - Forms: ED Satisfaction Letter Time of Disposition: 19:15 General Adult HPI - General Chief complaint: ED Fever Stated complaint: UTI fever Time Seen by Provider: 11/04/18 16:06 Source: patient Limitations: no limitations Nursing Notes Reviewed: Yes Vital Signs Reviewed: Yes - History of Present Illness Pain Scale: 0 - Related Data Home Medications Medication Instructions Recorded Confirmed [place]-3/Dha/Epa/Fish Oil [Fish Oil 1,000 mg PO DAILY 04/21/15 05/08/18 1,000 mg Softgel] Calcium Carb/Magnesium Oxid/D3 1 tab PO DAILY 05/08/18 05/08/18 [Calcium Magnesium + D Tablet] Glucosamine HCl/Chondr Sam A Na 1 tab PO DAILY 05/08/18 05/08/18 [Cvs Glucosamine-Chondr Tablet] Omeprazole [PriLOSEC] 40 mg PO DAILY 05/08/18 05/08/18 Vitamin E Acid Succinate [Vitamin 400 units PO DAILY 05/08/18 05/08/18 E] Previous Rx's Medication Instructions Recorded Albuterol Sulfate [Albuterol 2 puff IH Q6HR PRN #1 hfa.aer.ad 05/09/18 Inhaler] Aspirin Enteric Coated [Aspirin EC] 81 mg PO DAILY #30 tablet. 05/09/18 Atorvastatin [Lipitor] 40 mg PO HS #30 tablet 05/09/18 Furosemide [Lasix] 20 mg PO DAILY PRN #15 tablet 05/09/18 Lisinopril [Zestril] 20 mg PO DAILY #30 tablet 05/09/18 Meloxicam [Mobic] 15 mg PO DAILY PRN #0 05/09/18 Ondansetron ODT [Zofran ODT] 4 mg SL Q6HR #20 tab.rapdis 10/29/18 cephALEXin [Keflex] 500 mg PO BID #21 capsule 10/29/18 Allergies Allergy/AdvReac Type Severity Reaction Status Date / Time codeine AdvReac Gastrointestinal Verified 05/08/18 21:03 [From Tylenol-Codeine] Upset gabapentin [From Neurontin] AdvReac Gastrointestinal Verified 05/08/18 21:03 Upset naproxen AdvReac Gastrointestinal Verified 05/08/18 21:03 Upset prednisone AdvReac Drowsy Verified 05/08/18 21:03 tramadol AdvReac Gastrointestinal Verified 05/08/18 21:03 Upset Past Medical History - Past Medical History Medical history: Reports: arthritis, hyperlipidemia, hypertension, other Surgical history: Reports: cholecystectomy, other Psychiatric history: Reports: 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 - Social History Smoking Status: Never smoker Smokeless Tobacco Status: No Alcohol use: Reports: none Drug use: Reports: none Physical Exam - General Limitations: no limitations General appearance: alert Course Vital Signs Temperature 102.3 F H 11/04/18 15:59 Pulse Rate 94 11/04/18 15:59 Respiratory Rate 18 11/04/18 15:59 Blood Pressure 145/98 11/04/18 15:59 O2 Sat by Pulse Oximetry 95 11/04/18 15:59 Temperature 102.3 F H 11/04/18 16:25 Pulse Rate 94 11/04/18 16:25 Respiratory Rate 18 11/04/18 16:25 Blood Pressure 145/98 11/04/18 16:25 O2 Sat by Pulse Oximetry 98 11/04/18 16:25 Oxygen Delivery Oxygen Delivery Room Air Medical Decision Making - Lab Data Result diagrams: 11/04/18 16:29 11/04/18 16:29 Lab Results 11/04/18 11/04/18 11/04/18 Range/Units 16:00 16:18 16:29 WBC 6.2 D (4.3-11.1) K/mcL RBC 4.37 (3.82-4.97) M/mcL Hgb 12.1 (11.5-15.4) g/dL Hct 37.3 (35.3-44.9) % MCV 85.4 (83.0-100.0) fL MCH 27.7 L (28.0-33.3) pg MCHC 32.4 (31.6-35.5) g/dL RDW 13.0 (11.5-14.5) % Plt Count 160 (140-400) K/mcL MPV 10.0 (9.4-12.4) fL Immature Gran % 0.6 (0-4) % Seg Neutrophils % 60.8 % Lymphocytes % 29.7 % Monocytes % 6.6 % Eosinophils % 1.8 % Basophils % 0.5 % Neutrophils # 3.8 (1.6-8.9) K/mcL Lymphocytes # 1.8 (0.6-4.6) K/mcL Monocytes # 0.4 (0.0-1.3) K/mcL Eosinophils # 0.1 (0.0-0.6) K/mcL Basophils # 0.0 (0.0-0.2) K/mcL Sodium (136-145) mEq/L Potassium (3.5-5.1) mEq/L Chloride (98-107) mEq/L Carbon Dioxide (23-29) mEq/L BUN (6-20) mg/dL Creatinine (0.60-1.20) mg/dL Est GFR ( Amer) (> 60) Est GFR (Non-Af Amer) (> 60) BUN/Creatinine Ratio (6-26) Glucose (70-105) mg/dL Calculated Osmolality (280-300) Lactic Acid 1.1 (0.5-2.2) mmol/L Calcium (8.6-10.3) mg/dL Total Bilirubin (0.3-1.0) mg/dL Direct Bilirubin (0.0-0.2) mg/dL Indirect Bilirubin (0.0-1.2) mg/dL AST (13-39) Units/L ALT (7-52) Units/L Alkaline Phosphatase (34-104) Units/L Troponin I (< 0.04) ng/mL Serum Total Protein (6.4-8.9) g/dL Albumin (3.5-5.7) g/dL Globulin (2.4-3.5) g/dL Albumin/Globulin Ratio (1.1-2.2) Urine Color Yellow (Yellow) Urine Clarity Clear (Clear) Urine pH 6.5 (5.0-8.0) pH Units Ur Specific [place] 1.010 (1.010-1.025) Urine Protein Negative (Neg-Trace) mg/dL Urine Glucose (UA) Normal (Normal) mg/dL Urine Ketones Negative (Negative) mg/dL Urine Blood Negative (Negative) Urine Nitrite Negative (Negative) Urine Bilirubin Negative (Negative) Urine Urobilinogen Normal (Normal) mg/dL Ur Leukocyte Esterase Negative (Negative) Ur Culture Indicated? NO (NO) Lyme Total Antibody (Negative) EBV Capsid Ag IgM Ab (Negative) Infectious Upson Assay (Negative) 11/04/18 11/04/18 11/04/18 Range/Units 16:29 16:29 16:29 WBC (4.3-11.1) K/mcL RBC (3.82-4.97) M/mcL Hgb (11.5-15.4) g/dL Hct (35.3-44.9) % MCV (83.0-100.0) fL MCH (28.0-33.3) pg MCHC (31.6-35.5) g/dL RDW (11.5-14.5) % Plt Count (140-400) K/mcL MPV (9.4-12.4) fL Immature Gran % (0-4) % Seg Neutrophils % % Lymphocytes % % Monocytes % % Eosinophils % % Basophils % % Neutrophils # (1.6-8.9) K/mcL Lymphocytes # (0.6-4.6) K/mcL Monocytes # (0.0-1.3) K/mcL Eosinophils # (0.0-0.6) K/mcL Basophils # (0.0-0.2) K/mcL Sodium 132 L (136-145) mEq/L Potassium 3.8 (3.5-5.1) mEq/L Chloride 96 L (98-107) mEq/L Carbon Dioxide 25 (23-29) mEq/L BUN 13 (6-20) mg/dL Creatinine 0.76 (0.60-1.20) mg/dL Est GFR ( Amer) > 60 (> 60) Est GFR (Non-Af Amer) > 60 (> 60) BUN/Creatinine Ratio 17 (6-26) Glucose 135 H (70-105) mg/dL Calculated Osmolality 276 L (280-300) Lactic Acid (0.5-2.2) mmol/L Calcium 8.4 L (8.6-10.3) mg/dL Total Bilirubin 0.5 (0.3-1.0) mg/dL Direct Bilirubin 0.0 (0.0-0.2) mg/dL Indirect Bilirubin 0.5 (0.0-1.2) mg/dL AST 25 (13-39) Units/L ALT 44 (7-52) Units/L Alkaline Phosphatase 55 (34-104) Units/L Troponin I < 0.03 (< 0.04) ng/mL Serum Total Protein 6.8 (6.4-8.9) g/dL Albumin 3.6 (3.5-5.7) g/dL Globulin 3.2 (2.4-3.5) g/dL Albumin/Globulin Ratio 1.1 (1.1-2.2) Urine Color (Yellow) Urine Clarity (Clear) Urine pH (5.0-8.0) pH Units Ur Specific [place] (1.010-1.025) Urine Protein (Neg-Trace) mg/dL Urine Glucose (UA) (Normal) mg/dL Urine Ketones (Negative) mg/dL Urine Blood (Negative) Urine Nitrite (Negative) Urine Bilirubin (Negative) Urine Urobilinogen (Normal) mg/dL Ur Leukocyte Esterase (Negative) Ur Culture Indicated? (NO) Lyme Total Antibody Negative (Negative) EBV Capsid Ag IgM Ab Negative (Negative) Infectious Upson Assay Negative (Negative) Attestation Statement - Attestation Attestation: I examined this patient and my medical decision-making was reviewed with the Resident Physician. I agree with the documented findings, disposition and treatment plan as described except to the extent set forth below. Patient to the ED with a chief complaint of a fever. Patient has felt bad for the past 10 days. Been hot and sweaty. Plan will check her temperature today and it was 103. She has been treated recently with 2 different antibiotics. On exam she is febrile. Abdomen is soft. Lungs are clear. No posterior pharynx erythema. Tympanic membranes unremarkable. Full range of motion of extremities. Examination of her right knee where she has had prior placement reveals full range of motion with no erythema. She does have a large varicose vein left upper thigh. No spinal tenderness. No neck stiffness. No meningismus. Plan. Septic workup. She does not have a UTI here. EKG reviewed with the resident. No acute ischemic changes. No source of infection found. Blood counts are unremarkable. Flu test negative. Lyme test negative. Upson test negative. She is admitted to medicine for further workup Chest X-Ray 11/04/18 17:14 IMPRESSION: No acute cardiopulmonary disease. D/ / 11/04/2018 17:24:39 Renny Chun MD / bola Interpreting Provider: Renny Chun MD
[2018-11-04 18:03] LABS: EBV Virus Capsid Ag IgM Ab Negative (Negative)
[2018-11-04 18:08] LABS: Lyme Disease Total Antibody Negative (Negative)
[2018-11-04] MEDS ORDERED: Vancomycin 1,750 MG in 0.9 % Sodium Chloride 250 ML IVPB ONE (19:10)
[2018-11-04] MEDS ORDERED: Cefepime HCl 1,000 MG in Water for inj. (sterile) 10 ML IVP STA (19:10)
[2018-11-04] MEDS ORDERED: Cefepime HCl 2,000 MG in Water for inj. (sterile) 20 ML IVP STA (19:21)
[2018-11-04] MEDS ORDERED: Naloxone 0.4 MG/ML INJ IVP PRN (22:42)
--- NOTE | 2018-11-04 23:24 | Internal Med History&Physical ---
<Karlee Munoz Mukesh - Last Filed: 11/05/18 03:48> Date of Encounter: 11/05/18 Time of Encounter: 22:00 Internal Medicine - H&P: HPI Chief complaint: fever History of present illness: Ms. Le is a 58 year old female with past medical history of hypertension, obstructive sleep apnea on CPAP. Patient states on October 23 she began to have symptoms of headache, sinus pressure and general feelings of malaise. Then 2 days later on Tuesday she stated she began having symptoms of fever, sweating and chills. Patient did not take her temperature at that time but patient did not feel well patient did not take any medications for her symptoms at that time. She continued to feel weak, general malaise,and dizziness. Patient also admits to symptoms of mild bladder pressure, nausea, decreased appetite, and dry cough. Patient waited until October 29, then came into [facility] to seek medical attention, where she was diagnosed with a UTI, and given Keflex. The following TuesdayOct 25, patient was seen by her PCP who changed her antibiotics to ciprofloxacin. Patient continued antibiotic but also continued to have a fever. she took her temperature during the week and it was 102.4. She said she was getting better until today when she began to feel febrile with cold sweats. She took her temp and it was 101.4. Patient called urgent care with symptoms she was instructed to visit the ED. Patient denies gross hematuria, dysuria, chest pain, rhinorrhea, postnasal drip, diarrhea, abdominal pain, vomiting. 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 Patient stands for long periods of time while working. She does admit to sleeping with CPAP daily and does not clean her CPAP mask of hosing. She replaces them every 6 months. In ED: Patient was hemodynamically stable but febrile T 102.3F, P 94, RR 18, BP 145/98 O2 Sat 95% on RA. U/A, CBC, EKG, CXR, blood cultures were drawn, Flu, Lyme, EBV, and [place] were completed which were all negative. She was given 1000mg of Tylenol, 1L of NS, 1 dose of Vancomycin and 1 dose of cefepime. Past Med Surg Social Fam HX - Past Medical History Medical history: arthritis, hyperlipidemia, hypertension, other Additional medical history: Baretts esophagus Psychiatric history: no psych history - Past Surgical History Surgical History: cholecystectomy, other Additional surgical history: tubes tied, right rotater cuff repair, right knee replacement. - Social History Smoking Status: Never smoker Smokeless Tobacco Status: No Alcohol use: none Drug use: none - Family History Father Living Status: Still Living Hx Family Cardiac Disorders: Yes (cad, quadruple bypass) Hx Family Respiratory Disorders: No Hx Family Cancer: No Hx Family GI Disorders: No Hx Family Genitourinary Disorders: No Hx Family Endocrine Disorder: Yes (dm) Hx Family Musculoskeletal Disorders: Yes (arthritis) Hx Family Neuromuscular Disorders: No Hx Family Neurologic Disorders: No Mother Living Status: Still Living Hx Family Cardiac Disorders: Yes (AFIB, CHF) Hx Family Respiratory Disorders: No Hx Family Cancer: No Hx Family GI Disorders: No Hx Family Genitourinary Disorders: No Hx Family Endocrine Disorder: Yes (Thyroid, DM) Hx Family Musculoskeletal Disorders: No Hx Family Neuromuscular Disorders: No Hx Family Neurologic Disorders: No Hx Family HEENT Disorders: No Hx Family Autoimmune Disorders: No Hx Family Reproductive Disorders: No Hx Family Psychosocial Disorders: No Hx Family Medical Disorders: No Internal Medicine - H&P: Meds Clubb-3/Dha/Epa/Fish Oil [Fish Oil 1,000 mg Softgel] 1,000 mg PO DAILY 04/21/15 [History] Calcium Carb/Magnesium Oxid/D3 [Calcium Magnesium + D Tablet] 1 tab PO DAILY 05/08/18 [History] Glucosamine HCl/Chondr Sam A Na [Cvs Glucosamine-Chondr Tablet] 1 tab PO DAILY 05/08/18 [History] Omeprazole [PriLOSEC] 40 mg PO DAILY 05/08/18 [History] Vitamin E Acid Succinate [Vitamin E] 400 units PO DAILY 05/08/18 [History] Albuterol Sulfate [Albuterol Inhaler] 2 puff IH Q6HR PRN #1 hfa.aer.[id number] 05/09/18 [Rx] Aspirin Enteric Coated [Aspirin EC] 81 mg PO DAILY #30 tablet. 05/09/18 [Rx] Atorvastatin [Lipitor] 40 mg PO HS #30 tablet 05/09/18 [Rx] Furosemide [Lasix] 20 mg PO DAILY PRN #15 tablet 05/09/18 [Rx] Lisinopril [Zestril] 20 mg PO DAILY #30 tablet 05/09/18 [Rx] Meloxicam [Mobic] 15 mg PO DAILY PRN #0 05/09/18 [Rx] Ondansetron ODT [Zofran ODT] 4 mg SL Q6HR #20 tab.rapdis 10/29/18 [Rx] Allergy/AdvReac Type Severity Reaction Status Date / Time codeine AdvReac Gastrointestinal Verified 05/08/18 21:03 [From Tylenol-Codeine] Upset gabapentin [From Neurontin] AdvReac Gastrointestinal Verified 05/08/18 21:03 Upset naproxen AdvReac Gastrointestinal Verified 05/08/18 21:03 Upset prednisone AdvReac Drowsy Verified 05/08/18 21:03 tramadol AdvReac Gastrointestinal Verified 05/08/18 21:03 Upset All Systems PM: A 10-system review of systems was performed and is negative for pertinent findings except as documented above in the HPI. Review of systems: Constitutional: Admits Fever, Chills, Headache, Dizziness Respiratory: Denies Shortness of breath, Chronic cough, hemoptysis, Dyspnea at rest, or activity Cardiovascular: Denies Chest pain, Syncope, Peripheral edema , palpitations Gastrointestinal: Denies hematochezia, Abdominal pain, vomiting, admits nausea Genitourinary: Denies Painful urination, hematuria, urinary retention Endocrine: denies unintentional Significant weight changes Skin: Denies rashes, admits to unexplained bruising, - Constitutional Vitals: Temp Pulse Resp BP Pulse Ox 97.8 F 65 16 117/77 93 11/04/18 21:20 11/04/18 21:20 11/04/18 21:20 11/04/18 21:20 11/04/18 21:20 Exam: Gen: alert/orientedx3, no acute distress. Head: atraumatic, normocephalic. ENT: no oropharyngeal erythema, nares patent, mucous membranes moist, Neck: No thyromegaly appreciated. Neck supple no cervical lymphadenopathy. Resp: CTAB, no wheezing, rhonchi, or rhales. CV: RRR, Normal S1 and S2. No murmur, gallops, or rubs. GI/Abdominal exam: bowel sounds throughout, soft, non-tender, non- distended; no hepatosplenomegaly Skin: intact; small blanching rash on dorsal aspect of feet b/l, no target lesions, scratches or tracts. Ext: No cyanosis or edema. Lower extremities contain tender bruised varic ose veins b/l, with pulses +2/4 bilaterally UE and LE. Neuro: no focal deficits, sensation intact b/l LE, strength 5/5 b/l UE and LE. DTR +2/4 UE and LE b/l. cooperative with exam. Internal Med - H&P Results - Labs CBC & Chem 7: 11/05/18 00:20 11/05/18 00:20 Labs: Short CBC 11/04/18 Range/Units 16:29 WBC 6.2 D (4.3-11.1) K/mcL Hgb 12.1 (11.5-15.4) g/dL Hct 37.3 (35.3-44.9) % Plt Count 160 (140-400) K/mcL Neutrophils # 3.8 (1.6-8.9) K/mcL BMP 11/04/18 16:29 Sodium 132 L Potassium 3.8 Chloride 96 L Carbon Dioxide 25 BUN 13 Creatinine 0.76 Glucose 135 H Calcium 8.4 L Cardiac Enzymes 11/04/18 Range/Units 16:29 Troponin I < 0.03 (< 0.04) ng/mL Liver Function 11/04/18 Range/Units 16:29 Total Bilirubin 0.5 (0.3-1.0) mg/dL Direct Bilirubin 0.0 (0.0-0.2) mg/dL AST 25 (13-39) Units/L ALT 44 (7-52) Units/L Alkaline Phosphatase 55 (34-104) Units/L Albumin 3.6 (3.5-5.7) g/dL Urine 11/04/18 Range/Units 16:00 Urine Color Yellow (Yellow) Urine Clarity Clear (Clear) Urine pH 6.5 (5.0-8.0) pH Units Ur Specific [place] 1.010 (1.010-1.025) Urine Protein Negative (Neg-Trace) mg/dL Urine Glucose (UA) Normal (Normal) mg/dL - Impressions ITS Impressions Chest X-Ray 11/04/18 17:14 IMPRESSION: No acute cardiopulmonary disease. D/ / 11/04/2018 17:24:39 Renny Chun MD / bola Interpreting Provider: Renny Chun MD - Assessment and Plan (1) Fever Current Visit: Yes Status: Acute Assessment and plan: Current etiology unknown, currently rule out viral source, vector borne, zoonotic disease, bacterial infection, vasculitis. Due to patient's history of varicose veins, occupation which includes standing for long periods of time, and physical exam which includes tenderness to palpation of superficial veins will rule out thrombophlebitis Plan; - Viral PCR - ECR, CRP - Blood smear - Bilateral lower extremity ultrasound - Obtain pro-calcitonin - Follow up blood culture - we will obtain ID consultation - continue to monitor for fevers overnight - Tylenol when necessary for fevers Qualifiers: Fever type: unspecified Qualified Code(s): R50.9 - Fever, unspecified (2) Obstructive sleep apnea Current Visit: Yes Status: Acute Assessment and plan: Patient currently uses CPAP at night Plan - CPAP ordered (3) Hypertension Current Visit: Yes Status: Chronic Assessment and plan: Essential controlled hypertension currently controlled on home blood pressure medications. Plan - Continue to Monitor blood pressure while admitted - Continue home antihypertensive medications (4) Hyperlipidemia Current Visit: Yes Status: Chronic Assessment and plan: Patient currently has chronic hyperlipidemia controlled on statin Plan - Continue home statin Qualifiers: Hyperlipidemia type: unspecified Qualified Code(s): E78.5 - Hyperlipidemia, unspecified (5) DVT prophylaxis Current Visit: Yes Status: Acute Assessment and plan: SCDs. - Time Spent With Patient Total time spent is greater than 50% in coordination of care (as documented) at patient's floor/unit and/or counseling patient: <YvesRichclaire Crook - Last Filed: 11/05/18 06:36> Date of Encounter: 11/05/18 Internal Medicine - H&P: HPI History of present illness: Ms. Le is a 58 year old female All Systems PM: A 10-system review of systems was performed and is negative for pertinent findings except as documented above in the HPI. - Constitutional Vitals: Temp Pulse Resp BP Pulse Ox 100.0 F H 85 16 135/76 97 11/05/18 04:38 11/05/18 04:38 11/05/18 04:38 11/05/18 04:38 11/05/18 04:38 Internal Med - H&P Results - Labs CBC & Chem 7: 11/05/18 00:20 11/05/18 00:20 Labs: Short CBC 11/04/18 11/05/18 Range/Units 16:29 00:20 WBC 6.2 D 4.7 (4.3-11.1) K/mcL Hgb 12.1 11.6 (11.5-15.4) g/dL Hct 37.3 36.8 (35.3-44.9) % Plt Count 160 140 (140-400) K/mcL Neutrophils # 3.8 2.4 (1.6-8.9) K/mcL BMP 11/04/18 11/05/18 16:29 00:20 Sodium 132 L 140 Potassium 3.8 3.7 Chloride 96 L 107 Carbon Dioxide 25 22 L BUN 13 11 Creatinine 0.76 0.67 Glucose 135 H 94 Calcium 8.4 L 7.7 L Cardiac Enzymes 11/04/18 Range/Units 16:29 Troponin I < 0.03 (< 0.04) ng/mL Liver Function 11/04/18 11/05/18 Range/Units 16:29 00:20 Total Bilirubin 0.5 0.5 (0.3-1.0) mg/dL Direct Bilirubin 0.0 (0.0-0.2) mg/dL AST 25 20 (13-39) Units/L ALT 44 39 (7-52) Units/L Alkaline Phosphatase 55 42 (34-104) Units/L Albumin 3.6 3.2 L (3.5-5.7) g/dL Urine 11/04/18 Range/Units 16:00 Urine Color Yellow (Yellow) Urine Clarity Clear (Clear) Urine pH 6.5 (5.0-8.0) pH Units Ur Specific [place] 1.010 (1.010-1.025) Urine Protein Negative (Neg-Trace) mg/dL Urine Glucose (UA) Normal (Normal) mg/dL - Impressions ITS Impressions Chest X-Ray 11/04/18 17:14 IMPRESSION: No acute cardiopulmonary disease. D/ / 11/04/2018 17:24:39 Renny Chun MD / bola Interpreting Provider: Renny Chun MD - Time Spent With Patient Total time spent is greater than 50% in coordination of care (as documented) at patient's floor/unit and/or counseling patient: - Attending Attestation [id number] encounter occurred at 7 PM.- Attending Attestation I saw evaluated and examined this patient and reviewed objective data including labs and my medical decision-making was reviewed with the Resident Physician. I agree with the documented findings, disposition and treatment plan as described except to any changes set forth below. We independently had [id number] contact with the patient. 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 Patient reported tender varicose veins bilaterally exquisitely to palpation along the vessel. Patient otherwise denies acute cough, nausea, vomiting, chest pain, shortness of breath, abdominal pain, diarrhea or dysuria, or rash, sick contacts, travels outside the country, TB exposures, new changes in medications except for Cipro. Burning some findings lower extremity varicose veins that is tender along the vein without purulence. Ultrasound LE to rule out DVT. Fever likely secondary to superficial thrombophlebitis. Pro- calcitonin ordered. Continue to monitor and ID consultation.
[2018-11-05 00:53] LABS: Basophils % 0.9 %; Eosinophils # 0.1 K/mcL (0.0-0.6); Eosinophils % 2.6 %; Hematocrit 36.8 % (35.3-44.9); Hemoglobin 11.6 g/dL (11.5-15.4); Immature Granulocytes % 0.9 % (0-4); Lymphocytes # 1.7 K/mcL (0.6-4.6); Lymphocytes % 36.3 %; Mean Corpuscular HGB Conc 31.5 g/dL (31.6-35.5); Mean Corpuscular Hemoglobin 27.3 pg (28.0-33.3); Mean Corpuscular Volume 86.6 fL (83.0-100.0); Mean Platelet Volume 9.6 fL (9.4-12.4); Monocytes # 0.4 K/mcL (0.0-1.3); Monocytes % 8.4 %; Neutrophils # 2.4 K/mcL (1.6-8.9); Platelet Count 140 K/mcL (140-400); Red Blood Count 4.25 M/mcL (3.82-4.97); Red Cell Distribution Width 13.1 % (11.5-14.5); Segmented Neutrophils % 50.9 %; White Blood Count 4.7 K/mcL (4.3-11.1)
[2018-11-05 01:10] LABS: Alanine Aminotransferase 39 Units/L (7-52); Albumin 3.2 g/dL (3.5-5.7); Albumin/Globulin Ratio 1.1 (1.1-2.2); Alkaline Phosphatase 42 Units/L (34-104); Aspartate Amino Transferase 20 Units/L (13-39); BUN/Creatinine Ratio 16 (6-26); Bilirubin,Total 0.5 mg/dL (0.3-1.0); Blood Urea Nitrogen 11 mg/dL (6-20); Calcium 7.7 mg/dL (8.6-10.3); Carbon Dioxide 22 mEq/L (23-29); Chloride 107 mEq/L (98-107); Globulin 2.8 g/dL (2.4-3.5); Glucose 94 mg/dL (70-105); Osmolality,Calculated 289 (280-300); Potassium 3.7 mEq/L (3.5-5.1); Sodium 140 mEq/L (136-145); eGFR For African Americans > 60 (> 60); eGFR For Non-African Americans > 60 (> 60)
[2018-11-05 01:29] LABS: Platelet Estimate Normal (Normal)
[2018-11-05 01:33] LABS: C-Reactive Protein 54 mg/L (Less than 10)
[2018-11-05 01:57] LABS: Adenovirus Not Detected (Not Detect); Bordetella Pertussis Not Detected (Not Detect); Chlamydophila pneumoniae Not Detected (Not Detect); Coronavirus 229E Not Detected (Not Detect); Coronavirus HKU1 Not Detected (Not Detect); Coronavirus NL63 Not Detected (Not Detect); Coronavirus OC43 Not Detected (Not Detect); Human Metapneumovirus Not Detected (Not Detect); Human Rhinovirus/Enterovirus Not Detected (Not Detect); Influenza A Subtype 2009 H1 Not Detected (Not Detect); Influenza A Untypeable Not Detected (Not Detect); Influenza B Not Detected (Not Detect); Mycoplasma pneumoniae Not Detected (Not Detect); Parainfluenza Virus 1 Not Detected (Not Detect); Parainfluenza Virus 2 Not Detected (Not Detect); Parainfluenza Virus 3 Not Detected (Not Detect); Parainfluenza Virus 4 Not Detected (Not Detect); Respiratory Syncytial Virus Not Detected (Not Detect)
[2018-11-05] MEDS: Acetaminophen 325 MG TABLET PO PRN ×2 (04:47→15:07)
[2018-11-05] MEDS: Lisinopril 20 MG TABLET PO SCH (08:09)
[2018-11-05] MEDS ORDERED: Isovue-370 500 ML BOTTLE IVP ONE (08:41)
[2018-11-05] MEDS: Doxycycline 100 MG in 0.9 % Sodium Chloride Mini Bag 100 ML IVPB SCH ×2 (09:08→17:36)
[2018-11-05] MEDS: Benzonatate 100 MG CAPSULE PO PRN ×2 (09:12→15:07)
[2018-11-05 12:10] LABS: Hepatitis B Surface Antigen Nonreactive (Nonreactive)
[2018-11-05 12:39] LABS: Hepatitis A Antibody IgM Nonreactive (Nonreactive); Hepatitis C Virus Antibody Nonreactive (Nonreactive)
--- NOTE | 2018-11-05 14:33 | Internal Med Progress Note ---
Hospitalist Progress Note - Encounter Date of Encounter: 11/05/18 Time of Encounter: 08:15 - Subjective Interval History: Seen at bedside. Spiked a fever of 100 overnight. Feeling fatigued, tired. Denies any chills and rigors. Denies chest pain , SOB. Mentions that she is feeling there is rash in the lower extremites. Denies nay histroy of insect bte. She lives close to [facility]. Also has exposure to ticks even though denies any tick bites. mentioned in H & P, had no relief wiht the oral antibioitcs at home - Exam Vitals: Temp Pulse Resp BP Pulse Ox 98.3 F 74 16 112/76 96 11/05/18 11:27 11/05/18 11:27 11/05/18 11:27 11/05/18 11:27 11/05/18 11:27 Exam: General: Alert and oriented, mild physical distress, able to follow commands. Lookign fatigued and tired. HEENT: No thyromegaly, no lymphadenopathy, no discharge. Eyes: No discharge. Normal conjuctiva, no icterus Respiratory: Normal vesicular breathing, no added sounds, breathing equal in b oth sides. CVS: Normal heart sounds, no murmurs, regular rhthm, no edema Musculuskeltal: No peripheral edema, peripheral pulses intact. No ulcers or wounds. Joints normal, ROM normal at all joints, no redness, or signs of septica rthritis. Lymph nodes: No lymphadenopathy Gastrointestinal: Soft, nontender abdomen, normal abdominal sounds. No distention noted. Genitourinary: No paravertebral tenderness. Skin: Papular rash appreiated in lower exptremietes, no tick bites appreciatd, no rash on other parts of body Neurological: Alert and oriented. No focal deficits. Cranial nerves II-XII intact. - Assessment and Plan (1) Recurrent fever of unknown cause Current Visit: Yes Status: Acute Assessment and Plan: Etiology is unclear. Considering prolonged course, nonresolution with oral antibiotics, did a high suspicion of vector borne and zoonotic infecctions, vasculitis. Other differential would be occult malignancy. While in PCR is negative. ESR is 20. CRP of 54. Blood cultures have been negative so far. Lactic acid normal. Pro-calcitonin normal. Obtain scan of the chest and abdomen to rule out any sort of infection or malignancy. Await Lyme serology. Order GIRFFIN to start working up for vasculitis. Order anaplasmosis serology As there is some suspicion of vector borne illness, start on doxycycline (2) DVT prophylaxis Current Visit: Yes Status: Acute Assessment and Plan: SCDs (3) Hyperlipidemia Current Visit: Yes Status: Chronic Assessment and Plan: continue statin (4) Hypertension Current Visit: Yes Status: Chronic Assessment and Plan: continue home meds (5) Morbid obesity with BMI of 40.0-44.9, adult Current Visit: No Status: Acute Assessment and Plan: Advised to lose weight (6) Obstructive sleep apnea Current Visit: Yes Status: Acute Assessment and Plan: CPAP overnight - Time Spent with Patient Total time spent is greater than 50% in coordination of care (as documented) at patient's floor/unit and/or counseling patient: Internal Medicine: Result - Labs CBC & Chem 7: 11/05/18 00:20 11/05/18 00:20 Labs: Short CBC 11/04/18 11/05/18 Range/Units 16:29 00:20 WBC 6.2 D 4.7 (4.3-11.1) K/mcL Hgb 12.1 11.6 (11.5-15.4) g/dL Hct 37.3 36.8 (35.3-44.9) % Plt Count 160 140 (140-400) K/mcL Neutrophils # 3.8 2.4 (1.6-8.9) K/mcL BMP 11/04/18 11/05/18 16:29 00:20 Sodium 132 L 140 Potassium 3.8 3.7 Chloride 96 L 107 Carbon Dioxide 25 22 L BUN 13 11 Creatinine 0.76 0.67 Glucose 135 H 94 Calcium 8.4 L 7.7 L Cardiac Enzymes 11/04/18 Range/Units 16:29 Troponin I < 0.03 (< 0.04) ng/mL Liver Function 11/04/18 11/05/18 Range/Units 16:29 00:20 Total Bilirubin 0.5 0.5 (0.3-1.0) mg/dL Direct Bilirubin 0.0 (0.0-0.2) mg/dL AST 25 20 (13-39) Units/L ALT 44 39 (7-52) Units/L Alkaline Phosphatase 55 42 (34-104) Units/L Albumin 3.6 3.2 L (3.5-5.7) g/dL Urine 11/04/18 Range/Units 16:00 Urine Color Yellow (Yellow) Urine Clarity Clear (Clear) Urine pH 6.5 (5.0-8.0) pH Units Ur Specific [place] 1.010 (1.010-1.025) Urine Protein Negative (Neg-Trace) mg/dL Urine Glucose (UA) Normal (Normal) mg/dL - Impressions Impressions Chest X-Ray 11/04/18 17:14 IMPRESSION: No acute cardiopulmonary disease. D/ / 11/04/2018 17:24:39 Renny Chun MD / bola Interpreting Provider: Renny Cuhn MD Consult Discharge Plan - Plan Referrals: Edel Matos MD [Primary Care Provider] - (3) Hyperlipidemia Qualifiers: Hyperlipidemia type: unspecified Qualified Code(s): E78.5 - Hyperlipidemia, unspecified (4) Hypertension Qualifiers: Hypertension type: essential hypertension Qualified Code(s): I10 - Essential (primary) hypertension
[2018-11-05 15:26] LABS: Hepatitis B Surface Antibody 6.71 mIU/mL
[2018-11-05] MEDS: Ondansetron ODT 4 MG TAB.RAPDIS SL PRN (22:58)
[2018-11-06] MEDS: Doxycycline 100 MG in 0.9 % Sodium Chloride Mini Bag 100 ML IVPB SCH (06:03)
[2018-11-06] MEDS ORDERED: NON-FORMULARY MEDICATION 1 EACH EACH (Omega-3/Dha/Epa/Fish Oil [Fish Oil 1,000 Mg Softgel] PO SCH (09:00)
[2018-11-06] MEDS ORDERED: CHONDR SU A NA PO SCH (09:00)
[2018-11-06] MEDS ORDERED: GLUCOSAMINE HCL PO SCH (09:00)
[2018-11-06] MEDS ORDERED: [UNRECOGNIZED DRUG - OTHER] PO SCH (09:00)
[2018-11-06] MEDS ORDERED: Magnesium Oxide 400 MG TABLET PO SCH (09:00)
[2018-11-06] MEDS: Vitamin E 200 UNIT (90MG) CAPSULE PO SCH (09:39)
[2018-11-06] MEDS: Lisinopril 20 MG TABLET PO SCH (09:39)
[2018-11-06] MEDS: Cholecalciferol (D-3) 1,000 UNIT (25MCG) TABLET PO SCH (09:39)
[2018-11-06] MEDS: Aspirin Enteric Coated 81 MG Tablet PO SCH (09:39)
--- NOTE | 2018-11-06 13:04 | Electrocardiograph Report ---
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
--- NOTE | 2018-11-06 14:04 | Infectious Disease Consult ---
Infectious Disease-Consult - Encounter Date/Time Date of Encounter: 11/06/18 Time of Encounter: 14:02 - Data of Consult Patient: new to practice Reason for consult: FUO Consult date: 11/06/18 Requesting Physician: Lisette Muller Primary Care Provider: Edel Matos - [facility] HPI: Patient is a 58-year-old woman who presented to [place] on 11/04/2018 with fevers diaphoresis and feeling very weak and tired. We are consulted on 11/06/2018 for fever of unknown origin. Patient is a 58-year-old woman with past medical history significant for hypertension, dyslipidemia and GERD. Patient also has morbid obesity with a BMI of 41 was in the usual state of health until 10/23/2018 when she tells me she felt that sinus pressure, headache, very fatigued and weak and some sneezing and coughing. The coughing was nonproductive. Patient also had nausea but no abdominal pain and she tells me that she had some suprapubic tenderness. Patient at that time denied any neck stiffness, denied any vomiting denies any abdominal pain denies any constipation or diarrhea and denies any urinary symptoms. Patient denied any rash or joint pain. Patient tells me she started having significant diaphoresis and chills. Patient Getting progressively worse until 10/29/2018 when patient came to the emergency department for evaluation. At that time patient did not have any tachycardia. Her MAXIMUM TEMPERATURE was 99.4. She did have leukopenia with WBC of 4000 and neutrophils 70%. Wishes blood chemistry was nonrevealing including normal lactic acid, BUN, creatinine and LFTs. Patient had a urinalysis obtained which showed some pyuria 515 but many epithelial cells. Patient also had the influenza type a/V antigen and grew a Streptococcus RapidScreen and blood cultures 2 and a urine culture. All the workup was negative. A chest X ray was read as "unremarkable portable chest radiograph". Patient was discharged home with the diagnosis of UTI and was discharged home on Keflex. Patient tells me that she took Keflex and she actually continued to feel much worse with high-grade fever home diaphoresis that was excessive and continued to be nauseated and just felt very weak care. Patient went and saw her PCP around 10/01/2018 and she was told she had a UTI so he Keflex. The patient was started on ciprofloxacin. Patient continued to have high-grade fever she started having more nausea, some vomiting that. Patient was so weak that she could not even drive and was brought to the emergency department for evaluation. On further questioning, patient lives at home in [facility] with her . 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 Patient has no children or grandchildren home. He denies any recent sick contacts. Patient did denies any travel history. Patient tells me that she has 2 dogs at home. Outside cats, chickens and rabbits. I asked the patient if she had any tick bites. She tells me that last year she had many takes that were noted on her but none this year. Since admission patient has been febrile with a MAXIMUM TEMPERATURE of 102.3 Fahrenheit that has been getting progressively better. Patient also was tachycardic on admission without tachypnea. Presenting WBC was 6.2 with normal differential of 60% neutrophils 30% lymphocytes. Platelets are 140. Other labs revealed a pro-calcitonin on 0.05.. ESR of 20. Repeat urinalysis was negative and the rest are infectious panel was negative. They also checked hepatitis panel which was nonrevealing. Lyme antibody was ordered which was negative and so was the infectious mono assay. HIV also was tested and came back negative. We were asked to evaluate the patient and make further recommendations. Patient tells me that last night she was having intractable nausea and vomiting and still not feeling well. She is also has been very diaphoretic. Today she tells me that the first day she feels somewhat better. Patient denies any headache no neck stiffness no sinus pressure no sore throat no cough no more sneezing no abdominal pain no suprapubic tenderness - ROS Review of Systems: 10 point review of systems done, negative other for what mentioned in the history of present illness. - Results CBC & Chem 7: 11/05/18 00:20 11/05/18 00:20 - Exam Vitals: Temp Pulse Resp BP Pulse Ox 98.6 F 65 16 106/71 94 11/06/18 12:08 11/06/18 12:08 11/06/18 12:08 11/06/18 12:08 11/06/18 12:08 Exam: GENERAL: Laying in bed, appears comfortable. HEAD: Normocephalic atraumatic EYES: PERRLA, EOMI, no conjunctival hemorrhage, sclera anicteric ENT: Mucous membranes moist, no oral thrush. No tenderness over the sinuses. NECK: Supple. No meningeal signs. No masses. I did not appreciate any cervical lymphadenopathy. LUNGS: Chest expanding symmetrically. Lungs sounds audible both lung thompson. No wheezing, no rhonchi CV: RRR, S1S2, ABDOMEN: Soft, nontender, nondistended. Bowel sounds audible. No epigastric tenderness and no suprapubic tenderness and negative Low sign. BACK: No CVA tenderness. Normal inspection. No tenderness over the spine EXTREMITY: Adequate perfusion. No joint effusion.. She has a scar from previous total knee arthroplasty on the right done in 2016 SKIN: Normal color. She tells me that she has bruising on bilateral lower extremity. I really did not appreciate significant bruising there was more like discoloration over the varicose veins. There might be some fine petechial rash on the left thigh that is bluish and on the right calf muscle NEURO: Awake alert oriented 3. No obvious focal deficit PSYCH: Calm and appropriate. No agitation. Wisner-3/Dha/Epa/Fish Oil [Fish Oil 1,000 mg Softgel] 1,000 mg PO DAILY 04/21/15 [History] Calcium Carb/Magnesium Oxid/D3 [Calcium Magnesium + D Tablet] 1 tab PO DAILY 05/08/18 [History] Glucosamine HCl/Chondr Sam A Na [Cvs Glucosamine-Chondr Tablet] 1 tab PO DAILY 05/08/18 [History] Omeprazole [PriLOSEC] 40 mg PO DAILY 05/08/18 [History] Vitamin E Acid Succinate [Vitamin E] 400 units PO DAILY 05/08/18 [History] Albuterol Sulfate [Albuterol Inhaler] 2 puff IH Q6HR PRN #1 hfa.aer.ad 05/09/18 [Rx] Aspirin Enteric Coated [Aspirin EC] 81 mg PO DAILY #30 tablet. 05/09/18 [Rx] Atorvastatin [Lipitor] 40 mg PO HS #30 tablet 05/09/18 [Rx] Furosemide [Lasix] 20 mg PO DAILY PRN #15 tablet 05/09/18 [Rx] Meloxicam [Mobic] 15 mg PO DAILY PRN #0 05/09/18 [Rx] Ondansetron ODT [Zofran ODT] 4 mg SL Q6HR #20 tab.rapdis 10/29/18 [Rx] Ciprofloxacin HCl [Cipro] 500 mg PO BID 11/05/18 [History] Lisinopril 15 mg PO DAILY 11/05/18 [History] Allergy/AdvReac Type Severity Reaction Status Date / Time codeine AdvReac Gastrointestinal Verified 05/08/18 21:03 [From Tylenol-Codeine] Upset gabapentin [From Neurontin] AdvReac Gastrointestinal Verified 05/08/18 21:03 Upset naproxen AdvReac Gastrointestinal Verified 05/08/18 21:03 Upset prednisone AdvReac Drowsy Verified 05/08/18 21:03 tramadol AdvReac Gastrointestinal Verified 05/08/18 21:03 Upset - Assessment and Plan (1) Sepsis Current Visit: Yes Status: Acute Patient had a tachycardia and fever on admission Etiology not clear. On my differential includes viral syndrome, sinusitis, noninfectious etiology, SNOMED Code(s): 81021923 (2) Fever Current Visit: Yes Status: Acute Etiology not clear. So far all cultures have been negative, including urine and blood culture. Respiratory infectious panel, HIV, Lyme serology, hepatitis A, B, and C are all negative Inflammatory markers not impressive ESR was 25 CRP around 50 Pro-calcitonin within normal limits CT chest abdomen and pelvis nonrevealing all within normal limit Ultrasound left lower extremity with no DVT On my differential including a viral syndrome, born illness is a possibility specially with the low platelet but we do not have proof of thick infection. Ironically patient did not improve on doxycycline and now is the first time she is afebrile. No need to order tick panel. I think if we have a high index of suspicion we should treat. Patient does have chickens at home. There is no signs of histoplasmosis Patient also has rabbits but my index of suspicion for tolerating anemia is very low since the patient has no glandular, pneumonic, skin lesions etc. Cat Scratch fever I guess is on the differential non infectious etiology is also on my diff Recommend: check CT head to rule out sinusitis check GRIFFIN and RF follow up on cultures to finalize check lipase/amylase continue doxycycline but switch to 100mg orally bid duration of treatment depends on the clinical picture Qualifiers: Fever type: unspecified Qualified Code(s): R50.9 - Fever, unspecified SNOMED Code(s): 093836465 (3) Rash and nonspecific skin eruption Current Visit: Yes Status: Acute SNOMED Code(s): 867484979 (4) Viral syndrome Current Visit: Yes Status: Acute 2 weeks ago patient had rhinorrhea, sinus pressure, headache and nausea. SNOMED Code(s): 86593585 (5) Hypertension Current Visit: Yes Status: Chronic Qualifiers: Hypertension type: essential hypertension Qualified Code(s): I10 - E ssential (primary) hypertension SNOMED Code(s): 98416092 (6) Metabolic syndrome Current Visit: No Status: Acute SNOMED Code(s): 577846825 (7) Morbid obesity with BMI of 40.0-44.9, adult Current Visit: No Status: Acute SNOMED Code(s): 685167694, 13858314024034 Past Med Surg Social Fam HX - Past Medical History Medical history: arthritis, hyperlipidemia, hypertension, other Additional medical history: Baretts esophagus Psychiatric history: no psych history - Past Surgical History Surgical History: cholecystectomy, other Additional surgical history: tubes tied, right rotater cuff repair, right knee replacement. - Social History Smoking Status: Never smoker Smokeless Tobacco Status: No Alcohol use: none Drug use: none - Family History Father Living Status: Still Living Hx Family Cardiac Disorders: Yes (cad, quadruple bypass) Hx Family Respiratory Disorders: No Hx Family Cancer: No Hx Family GI Disorders: No Hx Family Genitourinary Disorders: No Hx Family Endocrine Disorder: Yes (dm) Hx Family Musculoskeletal Disorders: Yes (arthritis) Hx Family Neuromuscular Disorders: No Hx Family Neurologic Disorders: No Mother Living Status: Still Living Hx Family Cardiac Disorders: Yes (AFIB, CHF) Hx Family Respiratory Disorders: No Hx Family Cancer: No Hx Family GI Disorders: No Hx Family Genitourinary Disorders: No Hx Family Endocrine Disorder: Yes (Thyroid, DM) Hx Family Musculoskeletal Disorders: No Hx Family Neuromuscular Disorders: No Hx Family Neurologic Disorders: No Hx Family HEENT Disorders: No Hx Family Autoimmune Disorders: No Hx Family Reproductive Disorders: No Hx Family Psychosocial Disorders: No Hx Family Medical Disorders: No Consult Discharge Plan - Plan Referrals: Edel Matos MD [Primary Care Provider] -
--- NOTE | 2018-11-06 15:58 | Internal Med Progress Note ---
Hospitalist Progress Note - Encounter Date of Encounter: 11/06/18 Time of Encounter: 10:00 - Subjective Interval History: Patient was seen at bedside. Did not spike any fever overnight. Did mention that she was drenching in sweats overnight. Denies fever, chills, rigors. Denies chest pain or shortness of breath. Mentions that her rash is still the s mady. No other overnight events. - Exam Vitals: Temp Pulse Resp BP Pulse Ox 98.0 F 67 16 110/74 96 11/06/18 15:43 11/06/18 15:43 11/06/18 15:43 11/06/18 15:43 11/06/18 15:43 Exam: General: Alert and oriented, mild physical distress, able to follow commands. Respiratory: Normal vesicular breathing, no added sounds, breathing equal in both sides. CVS: Normal heart sounds, no murmurs, regular rhthm, no edema Musculuskeltal: No peripheral edema, peripheral pulses intact. No ulcers or wounds. Joints normal, ROM normal at all joints, no redness, or signs of septica rthritis. Lymph nodes: No lymphadenopathy Gastrointestinal: Soft, nontender abdomen, normal abdominal sounds. No distention noted. Genitourinary: No paravertebral tenderness. Skin:Mild rash appreiated in lower exptremietes, no tick bites appreciatd, no rash on other parts of body Neurological: Alert and oriented. No focal deficits. Cranial nerves II-XII intact. - Assessment and Plan (1) Recurrent fever of unknown cause Current Visit: Yes Status: Acute Assessment and Plan: Etiology is unclear. Considering prolonged course, nonresolution with oral antibiotics, did a high suspicion of vector borne and zoonotic infecctions, vasculitis. Other differential would be occult malignancy. Viral panel is negative ESR is 20. CRP of 54. Blood cultures have been negative so far. Lactic acid normal. Pro-calcitonin normal. CT scna of the chest and the abdomen negative for any mass or source of infection Lyme serology negative Did not spike any fever since being on dosycycline D/W ID, will oder ct scan of the face to r/o sinusitis, order RF Will await other lab results Continue doxycycyline, will change to PO (2) Hyperlipidemia Current Visit: Yes Status: Chronic Assessment and Plan: continue statin (3) Hypertension Current Visit: Yes Status: Chronic Assessment and Plan: BP normal continue home meds (4) Morbid obesity with BMI of 40.0-44.9, adult Current Visit: No Status: Acute Assessment and Plan: Advised to lose weight (5) Obstructive sleep apnea Current Visit: Yes Status: Acute Assessment and Plan: CPAP overnight (6) Acute deep vein thrombosis (DVT) Current Visit: Yes Status: Acute Assessment and Plan: Pt was mentioning redness in the leg with the swelling and discomfort Doppler positive for DVT Start on lovenix will need to be dsicharged on AC. Likley provoked in context of immobility for 10-12 days, so will treat for 3-6 months - Time Spent with Patient Total time spent is greater than 50% in coordination of care (as documented) at patient's floor/unit and/or counseling patient: Internal Medicine: Result - Labs CBC & Chem 7: 11/05/18 00:20 11/05/18 00:20 - Impressions Impressions Abdomen/Pelvis CT 11/05/18 17:51 IMPRESSION: No acute cardiopulmonary, intra-abdominal or pelvic process seen. D/ /05/2018 17:56:59 Serge Smith MD / sherrie Interpreting Provider: Serge Smith MD Chest CT 11/05/18 17:51 IMPRESSION: No acute cardiopulmonary, intra-abdominal or pelvic process seen. D/ /05/2018 17:56:59 Serge Smith MD / sherrie Interpreting Provider: Serge Smith MD Consult Discharge Plan - Plan Referrals: Edel Matos MD [Primary Care Provider] - (2) Hyperlipidemia Qualifiers: Hyperlipidemia type: unspecified Qualified Code(s): E78.5 - Hyperlipidemia, unspecified (3) Hypertension Qualifiers: Hypertension type: essential hypertension Qualified Code(s): I10 - Essential (primary) hypertension (6) Acute deep vein thrombosis (DVT) Qualifiers: DVT location: lower extremity Affected thrombotic vein of extremity: popliteal Laterality: right Qualified Code(s): I82.431 - Acute embolism and thrombosis of right popliteal vein
[2018-11-06] MEDS: *HR* Enoxaparin 100 MG/ML SYRINGE SQ SCH (16:53)
[2018-11-06 18:44] LABS: Amylase 69 Units/L (29-103); Lipase 77 Units/L (11-82)
[2018-11-06] MEDS: Acetaminophen 325 MG TABLET PO PRN (20:33)
[2018-11-06] MEDS: Doxycycline 100 MG CAPSULE PO SCH (20:33)
[2018-11-06] MEDS: Ondansetron ODT 4 MG TAB.RAPDIS SL PRN (23:11)
[2018-11-07 01:43] LABS: Basophils % 0.8 %; Eosinophils # 0.2 K/mcL (0.0-0.6); Eosinophils % 3.8 %; Hematocrit 35.9 % (35.3-44.9); Hemoglobin 11.6 g/dL (11.5-15.4); Lymphocytes % 42.9 %; Mean Corpuscular HGB Conc 32.3 g/dL (31.6-35.5); Mean Corpuscular Hemoglobin 27.7 pg (28.0-33.3); Mean Corpuscular Volume 85.7 fL (83.0-100.0); Mean Platelet Volume 9.5 fL (9.4-12.4); Monocytes # 0.4 K/mcL (0.0-1.3); Monocytes % 7.4 %; Neutrophils # 2.3 K/mcL (1.6-8.9); Platelet Count 175 K/mcL (140-400); Red Blood Count 4.19 M/mcL (3.82-4.97); Red Cell Distribution Width 13.1 % (11.5-14.5); Segmented Neutrophils % 44.1 %; White Blood Count 5.2 K/mcL (4.3-11.1)
[2018-11-07 01:47] LABS: Lymphocytes # 2.2 K/mcL (0.6-4.6)
[2018-11-07 01:54] LABS: BUN/Creatinine Ratio 19 (6-26); Blood Urea Nitrogen 13 mg/dL (6-20); Calcium 8.6 mg/dL (8.6-10.3); Carbon Dioxide 27 mEq/L (23-29); Chloride 103 mEq/L (98-107); Glucose 109 mg/dL (70-105); Osmolality,Calculated 287 (280-300); Potassium 4.2 mEq/L (3.5-5.1); Sodium 138 mEq/L (136-145); eGFR For African Americans > 60 (> 60); eGFR For Non-African Americans > 60 (> 60)
[2018-11-07 02:30] LABS: Platelet Estimate Normal (Normal)
[2018-11-07] MEDS: *HR* Enoxaparin 100 MG/ML SYRINGE SQ SCH (06:26)
[2018-11-07] MEDS: Aspirin Enteric Coated 81 MG Tablet PO SCH (08:42)
[2018-11-07] MEDS: Vitamin E 200 UNIT (90MG) CAPSULE PO SCH (08:42)
[2018-11-07] MEDS: Cholecalciferol (D-3) 1,000 UNIT (25MCG) TABLET PO SCH (08:42)
[2018-11-07] MEDS: Doxycycline 100 MG CAPSULE PO SCH (08:42)
[2018-11-07] MEDS: Lisinopril 20 MG TABLET PO SCH (08:42)
--- NOTE | 2018-11-07 14:42 | Discharge Summary ---
- NOTES TO OUTPATIENT PROVIDER Notes to Outpatient Provider: Presented with the non specific symptoms of headache and fever of unknown origin. Etiolgoy remains unclear, all workup has been negaitve, will disharge with doxycycline for 7 days. Also found to have DVT of the right leg, elqiuis for 3-6 months. Orders not resulted at time of discharge: Pending orders 11/04/18 16:18 Culture,Blood [BC] Stat 11/05/18 10:07 GRIFFIN IgG JACQUELINE rflx IFA Routine Anaplasma phag IgG & IgM Routine Date of Encounter: 11/07/18 Time of Encounter: 11:00 - Discharge Diagnosis (1) Recurrent fever of unknown cause Priority: Primary Status: Acute (2) Hyperlipidemia Priority: Secondary Status: Chronic Qualifiers: Hyperlipidemia type: unspecified Qualified Code(s): E78.5 - Hyperlipidemia, unspecified (3) Hypertension Priority: Secondary Status: Chronic Qualifiers: Hypertension type: essential hypertension Qualified Code(s): I10 - Essential (primary) hypertension (4) Morbid obesity with BMI of 40.0-44.9, adult Priority: Secondary Status: Acute (5) Obstructive sleep apnea Priority: Secondary Status: Acute (6) Acute deep vein thrombosis (DVT) Priority: Secondary Status: Acute Qualifiers: DVT location: lower extremity Affected thrombotic vein of extremity: po pliteal Laterality: right Qualified Code(s): I82.431 - Acute embolism and thrombosis of right popliteal vein Hospital course: Ms. Le is a 58 year old female with past medical history significant for hypertension, obstructive sleep apnea, presented to the hospital because of headache, malaise, and fever of unknown origin for last 2 weeks. Patient mentioned she had she was spiking fever of 102 even on oral antibiotics at home. She was admitted for the management. While in the hospital, she was started on broad-spectrum antibiotics but even on them she spiked fever. CT scan of the chest and the abdomen was normal. Lab work including a UA was also normal. She was started on doxycycline prophylactically with a concern for zoonotic or tickborne illnesses. ID was consulted. Recommended CT scan of the sinuses to rule out sinusitis which was normal. Patient other lab work including rheumatoid factor, GRIFFIN , viral serology, respiratory viral panel was also normal. Today she mentioned that she was also bitten by a rabbit few days back. After discussion with ID, patient is being discharged on doxycycline for 7 more days that there is strong suspicion of tickborne or zoonotic infections. Patient also complained of pain in the bilateral lower extremities. Doppler was positive for DVT in the right leg. Discharging on eliquis. Recommended treatment for 3-6 months. Patient is advised to follow with her PCP as an outpatient. She is being discharged in stable condition. - Time Spent with Patient Total time spent providing and/or coordinating discharge services:35 minutes - Discharge Medications Prescriptions: New Apixaban [Eliquis] 5 mg PO BID 30 Days #75 tablet Doxycycline 100 mg PO BID 7 Days #14 capsule Continued Leon-3/Dha/Epa/Fish Oil [Fish Oil 1,000 mg Softgel] 1,000 mg PO DAILY Vitamin E Acid Succinate [Vitamin E] 400 units PO DAILY Omeprazole [PriLOSEC] 40 mg PO DAILY Glucosamine HCl/Chondr Sam A Na [Cvs Glucosamine-Chondr Tablet] 1 tab PO DAILY Calcium Carb/Magnesium Oxid/D3 [Calcium Magnesium + D Tablet] 1 tab PO DAILY Albuterol Sulfate [Proventil Inhaler] 2 puff IH Q6HR PRN #1 hfa.aer.ad PRN Reason: Shortness Of Breath Aspirin Enteric Coated [Aspirin EC] 81 mg PO DAILY #30 tablet. Atorvastatin [Lipitor] 40 mg PO HS #30 tablet Furosemide [Lasix] 20 mg PO DAILY PRN #15 tablet PRN Reason: Edema Meloxicam [Mobic] 15 mg PO DAILY PRN #0 PRN Reason: Pain Ondansetron ODT [Zofran ODT] 4 mg SL Q6HR #20 tab.rapdis Lisinopril 15 mg PO DAILY Discontinued Ciprofloxacin HCl [Cipro] 500 mg PO BID Home Medications: Leon-3/Dha/Epa/Fish Oil [Fish Oil 1,000 mg Softgel] 1,000 mg PO DAILY 04/21/15 [History] Calcium Carb/Magnesium Oxid/D3 [Calcium Magnesium + D Tablet] 1 tab PO DAILY 05/08/18 [History] Glucosamine HCl/Chondr Sam A Na [Cvs Glucosamine-Chondr Tablet] 1 tab PO DAILY 05/08/18 [History] Omeprazole [PriLOSEC] 40 mg PO DAILY 05/08/18 [History] Vitamin E Acid Succinate [Vitamin E] 400 units PO DAILY 05/08/18 [History] Albuterol Sulfate [Proventil Inhaler] 2 puff IH Q6HR PRN #1 hfa.aer.ad 05/09/18 [Rx] Aspirin Enteric Coated [Aspirin EC] 81 mg PO DAILY #30 tablet. 05/09/18 [Rx] Atorvastatin [Lipitor] 40 mg PO HS #30 tablet 05/09/18 [Rx] Furosemide [Lasix] 20 mg PO DAILY PRN #15 tablet 05/09/18 [Rx] Meloxicam [Mobic] 15 mg PO DAILY PRN #0 05/09/18 [Rx] Ondansetron ODT [Zofran ODT] 4 mg SL Q6HR #20 tab.rapdis 10/29/18 [Rx] Lisinopril 15 mg PO DAILY 11/05/18 [History] Apixaban [Eliquis] 5 mg PO BID 30 Days #75 tablet 11/07/18 [Rx] Doxycycline 100 mg PO BID 7 Days #14 capsule 11/07/18 [Rx] Allergies/Adverse Reactions: Allergy/AdvReac Type Severity Reaction Status Date / Time codeine AdvReac Gastrointestinal Verified 05/08/18 21:03 [From Tylenol-Codeine] Upset gabapentin [From Neurontin] AdvReac Gastrointestinal Verified 05/08/18 21:03 Upset naproxen AdvReac Gastrointestinal Verified 05/08/18 21:03 Upset prednisone AdvReac Drowsy Verified 05/08/18 21:03 tramadol AdvReac Gastrointestinal Verified 05/08/18 21:03 Upset Date of admission: 11/04/18 19:31 Primary care physician: Edel Matos Consults: 11/05/18 03:47 Consult to Infectious Diseases [CONS] Routine Consulting Provider: Infectious Disease Melissa Reason for Consult: Fever of unknown source Call Completed: No - Constitutional Vitals: Temp Pulse Resp BP Pulse Ox 99.0 F 66 16 127/90 99 11/07/18 12:08 11/07/18 12:08 11/07/18 12:08 11/07/18 12:08 11/07/18 12:08 Exam: General: Alert and oriented, mild physical distress, able to follow commands. Respiratory: Normal vesicular breathing, no added sounds, breathing equal in both sides. CVS: Normal heart sounds, no murmurs, regular rhthm, no edema Musculuskeltal: No peripheral edema, peripheral pulses intact. No ulcers or wounds. Joints normal, ROM normal at all joints, no redness, or signs of septica rthritis. Lymph nodes: No lymphadenopathy Gastrointestinal: Soft, nontender abdomen, normal abdominal sounds. No distention noted. Genitourinary: No paravertebral tenderness. Skin:Mild rash appreiated in lower exptremietes, no tick bites appreciatd, no rash on other parts of body Neurological: Alert and oriented. No focal deficits. Cranial nerves II-XII intact. - Patient Status Disposition: Home, Self-Care Condition: Fair Functional capacity at discharge: independent ambulation Overall status at discharge: patient is progressing back to baseline - Discharge Instructions Follow Up With: Edel Matos MD [Primary Care Provider] - (Appointment needed in 7-10 days) Polo Emmanuel MD [Partnered Physician] - 11/17/18 2:30 pm - Diet and Activity Activity: increase activity as tolerated Diet: advance to your usual diet
[2018-11-07 14:52] LABS: ANA IgG by ELISA NONE DETECTED (None Detected)
[2018-11-07 15:05] VITALS: BP 120/81
--- NOTE | 2018-11-07 20:24 | Infectious Disease Progress No ---
ID Progress Note Date of Encounter: 11/07/18 Time of Encounter: 13:00 - Subjective Subjective: Patient seen and examined. Doing significantly better. NO MCCULLOUGH, no CP, no SOB, No nausea/vomiting. No abdominal pain. NO urinary symptoms. still has diaphoresis VS afebrile > 48 hrs labs noted - Objective CBC & Chem 7: 11/07/18 00:32 11/07/18 00:32 - Exam Vitals: Temp Pulse Resp BP Pulse Ox 98.8 F 75 19 120/81 96 11/07/18 15:04 11/07/18 15:04 11/07/18 15:04 11/07/18 15:04 11/07/18 15:04 Exam: HEENT: CARON, EOMI NEck Supple Lungs: CTA B no wheezing CV RRR S1S2 ABdomen: soft, NT, ND +BS EXT adequate perfusion - Assessment and Plan (1) Sepsis Status: Acute Patient had a tachycardia and fever on admission Etiology not clear. On my differential includes viral syndrome, sinusitis, yanique nfectious etiology, Qualifiers: Sepsis type: sepsis due to unspecified organism Sepsis acute organ dysfunction status: unspecified Qualified Code(s): A41.9 - Sepsis, unspecified organism SNOMED Code(s): 38824735 (2) Fever Status: Acute Etiology not clear. So far all cultures have been negative, including urine and blood culture. Respiratory infectious panel, HIV, Lyme serology, hepatitis A, B, and C are all negative Inflammatory markers not impressive ESR was 25 CRP around 50 Pro-calcitonin within normal limits CT chest abdomen and pelvis nonrevealing all within normal limit Ultrasound left lower extremity with no DVT On my differential including a viral syndrome, born illness is a possibility specially with the low platelet but we do not have proof of thick infection. Ironically patient did not improve on doxycycline and now is the first time she is afebrile. No need to order tick panel. I think if we have a high index of suspicion we should treat. Patient does have chickens at home. There is no signs of histoplasmosis Patient also has rabbits but my index of suspicion for tolerating anemia is very low since the patient has no glandular, pneumonic, skin lesions etc. Cat Scratch fever I guess is on the differential non infectious etiology is also on my diff AT this point, all workup has been negative etiology not clear likely due to viral exanthem vs tick borne illness vs other d/w rheumatology as a curbside, usually unlikely to be autoimmune vasculitis with normal ESR improved and afebrile on doxy will continue doxy for 7 days patient instructed to call my office if her symptoms returned. d/w hospitalist team Qualifiers: Fever type: unspecified Qualified Code(s): R50.9 - Fever, unspecified SNOMED Code(s): 815956113 (3) Rash and nonspecific skin eruption Status: Acute SNOMED Code(s): 191118080 (4) Viral syndrome Status: Acute 2 weeks ago patient had rhinorrhea, sinus pressure, headache and nausea. SNOMED Code(s): 30299647 (5) Hypertension Status: Chronic Qualifiers: Hypertension type: essential hypertension Qualified Code(s): I10 - Essential (primary) hypertension SNOMED Code(s): 58231412 (6) Metabolic syndrome Status: Acute SNOMED Code(s): 988542218 (7) Morbid obesity with BMI of 40.0-44.9, adult Status: Acute SNOMED Code(s): 272774493, [id number] Consult Discharge Plan - Plan Instructions: Apixaban (By mouth), Deep Venous Thrombosis (DC) Additional Instructions: Your Eliquis refills were already called into to [facility]. Follow-up appointments: If there is not an appointment listed below, please call your physician and schedule a follow-up appointment. If you have congestive heart failure and your symptoms return, make an appointment with your physician. Medication List: Carry an up to date list of medications you are taking at all time. We have given you an updated medication list including any new medications that you have been prescribed. Please provide that list to your primary provider Symptoms: If your condition changes or you experience any of the following symptoms, notify your physician immediately: Unusual or worsening pain, fever, persistent nausea and vomiting, bleeding, increase in swelling (especially in your legs), sudden weight gain, extreme dizziness, chest pain, increased drainage or redness from a wound or incision. Go to the emergency department if you experience a problem with breathing. Weights: If you have a history of swelling or shortness of breath, weigh yourself daily and notify your physician if you have a weight gain of two or more pounds in one day or 5 or more pounds in a week. If you experience any of the warning signs for stroke: Sudden numbness or weakness of the face, arm or leg; especially on one side of the body, sudden confusion, trouble speaking or understanding, sudden trouble seeing in one or both eyes, sudden trouble walking, dizziness, loss of balance or coordination, sudden sever headache with no cause; Call 911 or go to the emergency room. Stroke is a medical emergency. Some risk factors for stroke: Age, cigarette smoking, diabetes, excessive alcohol consumption, family history, high blood pressure, overweight, physical inactivity, prior stroke, heart attack, diagnosis of carotid artery stenosis or other artery disease. If you smoke, STOP: Smoking or tobacco use significantly increases your risk of heart and lung disease. Your chance of disease greatly increases if you continue to smoke. For more information, call the [employer] tobacco quit line for smoking cessation 5-950-JQQB-NOW ( ) Referrals: Edel Matos MD [Primary Care Provider] - 11/13/18 10:45 am () Polo Emmanuel MD [Partnered Physician] - 11/17/18 2:30 pm Prescriptions: Doxycycline 100 mg PO BID 7 Days #14 capsule Transmission Status: Received by [facility]/pharmacy #[id number] Apixaban [Eliquis] 5 mg PO BID 30 Days #65 tablet Prescription Printed
[2018-11-09 10:18] LABS: Anaplasma phagocytophilum IgG <1:80 (<1:80); Anaplasma phagocytophilum IgM < 1:16 (< 1:16)
== END 2018-11-07 16:11 | disposition home or self-care (01) ==
LOC: EMEROOARM 15:44 → 3BNU 15:44 → SUATTDRO 19:31 → 3BNU 20:40
PROVIDERS: ADMIT Internal Medicine; ATTEND Internal Medicine